=== PATIENT | male | born 1980 | race African-American/Black ===

== ENCOUNTER 2024-10-29 05:06 | Inpatient (IN) | payer OTHER, SELFPAY ==
[2024-10-29] VITALS (28 sets, daily range): BP systolic 147–191; BP diastolic 98–146; PULSE 76–108; RESP 15–23; TEMP 36.5–37.2; O2SAT 95–100; BMI 27.0
--- NOTE | ~2024-10-29 | CT_ITS ---
EXAMINATION: CT brain wo con DATE: 10/29/2024 05:23 INDICATION: Right arm paralysis. TECHNIQUE: Computed tomography (CT) of the head was performed without intravenous contrast. The mA wa s adjusted according to patient size. Iterative reconstruction technique was employed. The dose-lengt h product was 908.00 mGy-cm. COMPARISON: None FINDINGS: There is an old lacunar infarct in the right thalamus. There is no intracranial hemorrhage, acute infarction, or abnormal intracranial mass lesion. The ventricles are normal in size. There is mild mucosal thickening in the paranasal sinuses. The orbits are normal. The mastoid air cells are no rmal. IMPRESSION: 1. Old lacunar infarct in the right thalamus. I called this result to Dr. Reyna. Reviewed, dictated and finalized at location A. IMPRESSION: 1. Old lacunar infarct in the right thalamus. I called this result to Dr. Iris greer
--- NOTE | ~2024-10-29 | CT_ITS ---
EXAMINATION: CTA brain carotid DATE: 10/29/2024 05:30 INDICATION: Right arm paralysis. TECHNIQUE: Computed tomographic angiography (CTA) of the head was performed with 100 mL Omnipaque-350 intravenous contrast. CTA of the neck was performed with intravenous contrast. Automated exposure co ntrol and iterative reconstruction technique were employed. The dose-length product was 1098.86 mGy-c m. Maximum intensity projection and volume rendered 3D-reconstructions were created by the [employer] st on a separate workstation. COMPARISON: Head CT 10/29/2024 FINDINGS: HEAD CTA: There is an old lacunar infarct in the right thalamus. There is no intracranial hemorrhage, acute infarction, or abnormal intracranial mass lesion. The ventricles are normal in size. The orbit s are normal. There is mild mucosal thickening in the paranasal sinuses. The mastoid air cells are no rmal. The vertebral arteries are codominant. There is mild stenosis of basilar artery and the posteri or cerebral arteries. There is no significant stenosis of the intracranial internal carotid arteries or anterior or middle cerebral arteries. Anterior communicating artery is normal. Posterior communica ting arteries are not identified. There is no aneurysm. NECK CTA: There is mild emphysema. There is mild scarring at left lung apex. There is no significant stenosis of the vertebral arteries. There is minimal plaque in the proximal internal carotid arteries . There is 0% stenosis of the proximal right internal carotid artery relative to normal distal artery lumen diameter (NASCET criteria). There is 0% stenosis of the proximal left internal carotid artery relative to normal distal artery lumen diameter. There is a carious lesion in a right maxillary molar . There is mild cervical spondylosis. IMPRESSION: 1. Old lacunar infarct in the right thalamus. 2. No aneurysm or significant intracranial arterial stenosis. 3. 0% stenosis of the proximal internal carotid arteries relative to normal distal artery lumen diame ters (NASCET criteria). 4. Mild emphysema. Reviewed, dictated and finalized at location A. IMPRESSION: 1. Old lacunar infarct in the right thalamus. 2. No aneurysm or significant intracranial arterial stenosis. 3. 0% stenosis of the proximal internal carotid arteries relative to normal dis sathish artery lumen diameters (NASCET criteria). 4. Mild emphysema.
--- NOTE | ~2024-10-29 | XR_ITS ---
EXAMINATION: XR chest 1V portable DATE: 10/29/2024 06:04 INDICATION: Cerebrovascular accident. TECHNIQUE: A single frontal view of the chest was obtained. COMPARISON: None. FINDINGS: There is no pneumonia, pleural effusion, or pneumothorax. Cardiomegaly is noted. IMPRESSION: 1. Cardiomegaly. Reviewed, dictated and finalized at location A. IMPRESSION: 1. Cardiomegaly.
--- NOTE | ~2024-10-29 | MR_ITS ---
EXAMINATION: MR brain/brain stem wo/w con DATE: 10/29/2024 14:33 INDICATION: Transient ischemic attack. Right arm paralysis. TECHNIQUE: Magnetic resonance imaging (MRI) of the brain and brainstem was performed without and with 20 mL ProHance intravenous contrast. COMPARISON: Head CT 10/29/2024 FINDINGS: There is a small acute infarct in the left frontal lobe. There is an acute infarct involvin g the left temporal parietal region. There is an old lacunar infarct in the right thalamus. There are scattered areas of nonspecific increased T2-weighted signal intensity in the cerebral white matter. There is no intracranial hemorrhage or abnormal mass lesion. The ventricles are normal in size. There is mild mucosal thickening in the paranasal sinuses. The orbits are normal. The mastoid air cells ar e normal. IMPRESSION: 1. Acute infarcts involving the left frontal lobe and left temporal parietal region. 2. Old lacunar infarct in the right thalamus. 3. Mild nonspecific cerebral white matter disease, which likely represents chronic small vessel ische taty disease. Reviewed, dictated and finalized at location A. IMPRESSION: 1. Acute infarcts involving the left frontal lobe and left temporal parietal re gion. 2. Old lacunar infarct in the right thalamus. 3. Mild nonspecific cerebral white matter disease, which likely represents space and missile defense operations yvon small vessel ischemic disease.
--- NOTE | 2024-10-29 05:11 | ECG_ITS ---
Test Date: 2024-10-29 05:32:23 Measurements Intervals [place] Rate: 102 P: 57 TX: 177 QRS: 53 QRSD: 92 T: 134 QT: 346 QTc: 452 Interpretive Statements SINUS TACHYCARDIA POSSIBLE LEFT ATRIAL ENLARGEMENT [-0.1mV P-WAVE IN V1/V2] LEFT VENTRICULAR HYPERTROPHY AND ST-T CHANGE [VOLTAGE CRITERIA PLUS ST/T ABNORMALITY] No previous ECG available for comparison Electronically Signed On 10-30-2024 15:26:44 CDT by Katherine Hendricks M.D.
[2024-10-29 05:12] LABS: Glucose Point of Care 96 mg/dl (65-105)
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
[2024-10-29 05:21] LABS: Estimated Glomerular Filt Rate 60
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
--- NOTE | 2024-10-29 05:39 | PC.NURSE ---
pt states that he drank 3 monster energy drinks in less than 12 hours.
[2024-10-29 05:42] LABS: Basophils Absolute Auto 0.1 K/mm3 (0.0-0.1); Basophils Percent Auto 1.4 % (0.2-1.2); Eosinophils Absolute Auto 0.1 K/mm3 (0-0.3); Eosinophils Percent Auto 2.6 % (0-4.4); Hematocrit 45.2 % (42.0-52.0); Hemoglobin 14.7 g/dL (14.0-18.0); Immature Granulocyte Absolute 0.01 K/mm3 (0.00-0.031); Immature Granulocyte Percent A 0.2 % (0-0.5); Lymphocytes Absolute Auto 1.78 K/mm3 (0.9-3.2); Lymphocytes Percent Auto 35.9 % (18.3-44.2); Mean Corpuscular HGB Conc 32.5 g/dl (32-36); Mean Corpuscular Hemoglobin 33.3 pg (26-34); Mean Corpuscular Volume 102.5 fl (80-100); Mean Platelet Volume 9.9 fl (7.4-10.4); Monocytes Absolute Auto 0.6 K/mm3 (0.1-0.6); Monocytes Percent Auto 12.3 % (2.6-8.5); Neutrophils Absolute Auto 2.4 K/mm3 (1.3-6.7); Neutrophils Percent Auto 47.6 % (45.5-73.1); Platelet Count Result 348 k/mm3 (150-375); Red Blood Count 4.41 M/mm3 (4.6-6.20); Red Cell Distribution Width 13.9 % (11.5-14.5)
[2024-10-29 05:56] LABS: Prothrombin Time 13.1 Seconds (11.1-14.7)
[2024-10-29 05:57] LABS: Partial Thromboplastin Time 27.3 Seconds (22.3-36.8)
[2024-10-29 06:04] LABS: Troponin I 0.022 ng/mL (0.000-0.034)
[2024-10-29 06:39] LABS: Alanine Aminotransferase 28 U/L (6-50); Albumin Level 4.8 g/dL (3.5-5.1); Alkaline Phosphatase 118 U/L (38-126); Anion Gap 11 mmol/L (4-12); Aspartate Amino Transferase 48 U/L (17-59); Bilirubin,Total 0.4 mg/dL (0.2-1.3); Blood Urea Nitrogen 11 mg/dL (9-20); Calcium 9.3 mg/dL (8.4-10.2); Carbon Dioxide 24 mmol/L (22-30); Chloride 103 mmol/L (98-107); Estimated CRCL calculation 81 ml/min; Estimated Glomerular Filt Rate > 60; Glucose 99 mg/dL (65-110); Potassium 3.9 mmol/L (3.4-5.0); Sodium 138 mmol/L (137-145)
[2024-10-29 06:51] LABS: NT Pro B Type Natriuretic Pept 852 pg/mL (19.9-100)
[2024-10-29] MEDS: LABETALOL HCL INJ 100 MG/20 ML VIAL 10 MG IV PUSH ×2 (06:59→09:03)
[2024-10-29 07:12] LABS: Cholesterol 207 mg/dL (0-200); HDL Direct 105 mg/dL; Triglycerides 60 mg/dL (<150)
[2024-10-29 07:13] LABS: Erythrocyte Sedimentation Rate 8 mm/hr (0-20)
[2024-10-29 07:22] LABS: LDL Cholesterol Direct 79 mg/dL
[2024-10-29 07:27] LABS: Hemoglobin A1C 5.4 % (<5.7)
[2024-10-29 07:36] LABS: Syphilis IgG/IgM Antibody Negative (Negative)
[2024-10-29] MEDS: CLOPIDOGREL BISULFATE 300 MG TABLET PO (09:00)
[2024-10-29] MEDS: ATORVASTATIN 40 MG TABLET PO (09:00)
[2024-10-29] MEDS: ASPIRIN 81 MG ENTERIC TABLET PO (09:00)
--- NOTE | 2024-10-29 09:36 | PC.NURSE ---
While this RN was in the room with patient around 0912, pt started having forceful, uncontrolled blinking, as well as forehead twitching. Pt reports he has never had this before, lasted approximately 30 seconds, and pt was talking to me through this. No change in VS while this was occuring. Pt's only current neuro deficit upon this RN's exam was mild expressive aphasia, slight delay finding his words but pt A&Ox4 and able to converse well despite slight delay. Approx 10 minutes after the uncontrolled blinking/forehead twitching, pt started having twitching to right side of his mouth that lasted for about two minutes. Pt was, again, responsive and talking through this. [place] Martin was informed of these incidents in report. This RN attempted to call MD Taveras, left message to call back.
--- NOTE | 2024-10-29 10:19 | ADMGEN ---
This patient, Rimma Elliott, was admitted to IMU Room 212-01. Patient/family oriented to hospital policies and general routines including ID bracelet, bed and alarms, visiting hours, pain management, procedures, bathroom and other care routines, personal items, smoking policy, room service/diet, and visiting hours. Information on how to activate the Rapid Response Team has been discussed. Patient/Family are encouraged to report perceived risks to care and to ask questions if they do not understand what they are told or what they should do.
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
--- NOTE | 2024-10-29 15:12 | PM.IMHP ---
H&P: HPI History of Present Illness Date/Time: 10/29/24 15:12 Chief Complaint: Right-sided weakness Narrative: This is a 44-year-old male who presented to the ER with right arm and leg weakness that started suddenly a approximately 4:10 a.m. prior to which he was at his baseline state of health and was at work. He denies any history of trauma. No other prior known diagnosis. Upon arrival to the ER his symptoms were already improving and continue to improve. Recheck which it was reported to be 96. Vital signs notable for tachycardia as well as hypertension. CT head with no bleed. CTA head and neck with old right thalamic stroke. No other significant stenosis noted. Patient's neurological symptoms continue to improve throughout his ER stay. Stroke team at [facility] was also contacted and given rapid improvement of his neurological symptoms no tPA or any any intervention recommended. He is getting admitted for further stroke workup and evaluation. Currently he reports right-sided weakness has much more improved and he has some numbness in his right upper extremity. He also had some twitching in his right face earlier in the ER which was short-lived. He received a dose of aspirin as well as loading dose of Plavix in the ER. For his hypertension he was given a dose of IV labetalol. He is getting admitted for further treatment. Review of Systems Review of Systems: - CONSTITUTIONAL: Denies weight loss, fever and chills. - HEENT: Denies changes in vision and hearing - RESPIRATORY: Denies SOB and cough. - CV: Denies palpitations and CP. - GI: Denies abdominal pain, nausea, vomiting and diarrhea. - : Denies dysuria and urinary frequency. - MSK: Denies myalgia and joint pain. - SKIN: Denies rash and pruritus. - NEUROLOGICAL: Denies headache and syncope. See HPI - PSYCHIATRIC: Denies recent changes in mood. Denies anxiety and depression. [facility] Past Medical History Medical History (Updated 10/29/24 @ 11:17 by Diya Isaacs MD) Left-sided cerebrovascular accident (CVA) Family History Family History Sibling TIA (transient ischemic attack) Mother Diabetes mellitus Hypertension Social History Social History Years smoked: 20 Smoking status: Current every day smoker Tobacco type: cigarettes Alcohol intake: current Drinks per week: 5 Substance use: never Do You Feel Safe in your Home?: Yes Lack of Transportation: No Lack of Food: Never True Current Housing: I Have Housing Concerned About Future Housing: No Difficulty Paying Gas/Electric Bills: No Difficulty Paying for Meds: No Currently Unemployed: No Education: Associate Degree Difficulty w/ Childcare or Family Care: No Occupation/Education: occupation Spiritual care concerns: No Meds Home Medications and Allergies Home Medications ?Medication ?Instructions ?Recorded ?Confirmed ?Type No Home Medications 10/29/24 10/29/24 History Allergies Allergy/AdvReac Type Severity Reaction Status Date / Time No Known Allergies Allergy Verified 10/29/24 05:35 Vital Signs Vital Signs - 24 hr 10/29/24 05:29 10/29/24 05:29 10/29/24 05:29 Temperature Pulse Rate 105 H 105 H 105 H Respiratory Rate 20 20 Blood Pressure Pulse Oximetry 97 Oxygen Delivery 10/29/24 05:29 10/29/24 05:29 10/29/24 05:38 Temperature 98.9 F Pulse Rate 108 H Respiratory Rate 20 Blood Pressure 161/146 H Pulse Oximetry 100 100 Oxygen Delivery Room Air Room Air 10/29/24 05:38 10/29/24 05:40 10/29/24 05:40 Temperature Pulse Rate 103 H 104 H 103 H Respiratory Rate 16 18 18 Blood Pressure 161/146 H 184/133 H 184/133 H Pulse Oximetry 98 98 98 Oxygen Delivery 10/29/24 05:47 10/29/24 06:10 10/29/24 06:16 Temperature Pulse Rate 107 H 101 H 99 Respiratory Rate 20 23 H 21 H Blood Pressure 164/123 H 183/135 H 191/133 H Pulse Oximetry 98 96 99 Oxygen Delivery 10/29/24 07:01 10/29/24 07:16 10/29/24 07:46 Temperature Pulse Rate 92 86 89 Respiratory Rate 18 19 23 H Blood Pressure 182/135 H 178/130 H 178/125 H Pulse Oximetry 98 99 99 Oxygen Delivery 10/29/24 08:16 10/29/24 08:30 10/29/24 08:31 Temperature Pulse Rate 82 78 83 Respiratory Rate 20 17 19 Blood Pressure 177/126 H 177/127 H Pulse Oximetry 99 99 99 Oxygen Delivery 10/29/24 08:45 10/29/24 08:46 10/29/24 09:00 Temperature Pulse Rate 87 82 90 Respiratory Rate 19 20 19 Blood Pressure 170/115 H Pulse Oximetry 100 100 100 Oxygen Delivery 10/29/24 09:01 10/29/24 09:03 10/29/24 09:15 Temperature Pulse Rate 83 88 88 Respiratory Rate 20 15 Blood Pressure 172/127 H Pulse Oximetry 99 99 Oxygen Delivery 10/29/24 10:04 10/29/24 10:04 10/29/24 10:04 Temperature 98.4 F Pulse Rate 81 89 Respiratory Rate 18 Blood Pressure 162/120 H Pulse Oximetry 99 Oxygen Delivery Room Air 10/29/24 12:00 10/29/24 12:00 10/29/24 12:00 Temperature 98.3 F Pulse Rate 82 94 Respiratory Rate 16 Blood Pressure 162/104 H Pulse Oximetry 99 Oxygen Delivery Room Air 10/29/24 14:00 Temperature Pulse Rate 84 Respiratory Rate Blood Pressure Pulse Oximetry Oxygen Delivery Exam Narrative: GENERAL: Well-appearing, well-nourished, and in no acute distress. HEAD: Normocephalic, atraumatic. EYES: Non injected, non icteric. ENT: Nares clear, no rhinorrhea or epistaxis. NECK: Supple. CHEST: Speaking in full sentences. No respiratory distress. HEART: Regular rate and rhythm. ABDOMEN: Soft, nondistended. EXTREMITIES: Normal range of motion. No lower extremity edema. SKIN: Warm, dry, no rash. NEURO: Alert and oriented x3. Right-sided weakness sensory loss on right upper extremity expressive aphasia PSYCH: Normal mood and affect. H&P: Results Labs Labs: Short CBC 10/29/24 Range/Units 05:12 WBC 5.0 (4.5-10.0) K/mm3 Hgb 14.7 (14.0-18.0) g/dL Hct 45.2 (42.0-52.0) % Plt Count 348 (150-375) k/mm3 [facility] 10/29/24 10/29/24 10/29/24 05:12 05:19 06:19 Sodium Cancelled 138 Potassium Cancelled 3.9 Chloride Cancelled 103 Carbon Dioxide Cancelled 24 BUN Cancelled 11 Creatinine Cancelled 1.30 1.18 Glucose Cancelled 99 Calcium Cancelled 9.3 Cardiac Enzymes 03/24/25 Range/Units 05:12 Troponin I 0.022 (0.000-0.034) ng/mL Liver Function 10/29/24 10/29/24 Range/Units 05:12 06:19 Total Bilirubin Cancelled 0.4 AST Cancelled 48 ALT Cancelled 28 Alkaline Phosphatase Cancelled 118 Albumin Cancelled 4.8 Assessment and Plan Assessment and plan (1) Hypertension: Code(s): I10 - Essential (primary) hypertension Status: Acute (2) Left-sided cerebrovascular accident (CVA): Code(s): I63.9 - Cerebral infarction, unspecified Status: Acute (3) Expressive aphasia: Code(s): R47.01 - Aphasia Status: Acute Plan This is a 44-year-old male who presented to the ER with right arm and leg weakness that started suddenly a approximately 4:10 a.m. prior to which he was at his baseline state of health and was at work. He denies any history of trauma. No other prior known diagnosis. Upon arrival to the ER his symptoms were already improving and continue to improve. Recheck which it was reported to be 96. Vital signs notable for tachycardia as well as hypertension. CT head with no bleed. CTA head and neck with old right thalamic stroke. No other significant stenosis noted. Patient's neurological symptoms continue to improve throughout his ER stay. Stroke team at [facility] was also contacted and given rapid improvement of his neurological symptoms no tPA or any any intervention recommended. He is getting admitted for further stroke workup and evaluation. Currently he reports right-sided weakness has much more improved and he has some numbness in his right upper extremity. He also had some twitching in his right face earlier in the ER which was short-lived. He received a dose of aspirin as well as loading dose of Plavix in the ER. For his hypertension he was given a dose of IV labetalol. He is getting admitted for further treatment. Right-sided hemiparesis with expressive aphasia rapid improvement not a candidate for tPA or intervention. CT head was negative. CTA head and neck with no significant stenosis. MRI and echo will be planned. Aspirin and Plavix along with statin. A1c at 5.4. LDL 79. Workup for hypercoagulable state in progress. Hypertension allow permissive hypertension labetalol p.r.n. after 24-48 hour antihypertensive will need to be started PT OT ST will be consulted. DVT prophylaxis Lovenox code status full code Hospitalist MIPS Advance Care Plan I have confirmed that the patient's Advanced Care Plan is present, code status is documented, or surrogate decision maker is listed in patient medical record.: Yes Medication Reconciliation I have utilized all available resources to obtain, update and review the patients current medications (includes all prescriptions, OTC, herbals, cannabis, and nutritional supplements).: Yes
[2024-10-30] VITALS (13 sets, daily range): BP systolic 156–183; BP diastolic 97–114; PULSE 76–109; RESP 20; TEMP 36.8–37.1; O2SAT 98–99
--- NOTE | 2024-10-30 | ECHO_ITS ---
Patient Info Name: Rimma Elliott Age: 44 years : 1980 Gender: Male Ht: 69 in Wt: 214 lbs BSA: 2.20 m2 Heart Rhythm: Sinus Rhythm Technical Quality: Good Exam Date: 10/30/2024 12:50 PM Exam Location: Echo Lab Patient Status: Inpatient Admit Date: 10/29/2024 Staff Ordering Physician: Myriam Reyna MD Mechanical Shovel Operator: Radha Mayo RDCS Attending Provider: Benny Taveras MD Referring Physician: Axel SR; Exam Type: CA echo doppler w bubble study Study Info Indications - TIA Complete two-dimensional, color flow and Doppler transthoracic echocardiogram is performed with agitated saline. Contrast/Agitated Saline Contrast/Ag. Saline: Agitated Saline Amount: 12.00 ml Existing IV Access: Yes IV Access Condition: patent with no signs of infiltration Summary 1. Left ventricular chamber dimension is mildly enlarged. 2. Left ventricular systolic function is severely reduced, estimated at 25-30%. 3. The left ventricular diastolic function is grade I diastolic dysfunction. 4. Right ventricular chamber dimension is mildly enlarged. 5. Right ventricular systolic function is normal. 6. Left atrial chamber dimension is mildly enlarged. 7. Intact interatrial septum visualized by color flow and agitated saline imaging. Negative bubble study. 8. There is mild mitral valve regurgitation. 9. There is mild tricuspid valve regurgitation. Left Ventricle Left ventricular chamber dimension is mildly enlarged. Left ventricular systolic function is severely reduced, estimated at 25-30%. There is no increased left ventricular wall thickness. The left ventricular diastolic function is grade I diastolic dysfunction. Right Ventricle Right ventricular chamber dimension is mildly enlarged. Right ventricular systolic function is normal. Left Atria Left atrial chamber dimension is mildly enlarged. Right Atria Right atrial chamber dimension is normal. Atrial Septum Intact interatrial septum visualized by color flow and agitated saline imaging. Negative bubble study. Aortic Valve The aortic valve is trileaflet. There is no aortic valve stenosis. There is no aortic valve regurgitation. Pulmonic Valve The pulmonic valve is not well visualized. There is trace pulmonic regurgitation. Mitral Valve There is mild mitral valve regurgitation. Tricuspid Valve There is mild tricuspid valve regurgitation. Pericardium/Pleural There is no pericardial effusion. Inferior Vena Cava Normal inferior vena cava with >50% collapse upon inspiration consistent with normal right atrial pressure, 3 mmHg. Aorta The aortic root size at the sinus of Valsalva is normal. Left Ventricular Outflow Tract Name Value Normal LVOT 2D LVOT Diameter 2.1 cm LVOT Doppler LVOT Peak Gradient 3 mmHg LVOT Mean Gradient 2 mmHg LVOT VTI 16 cm LVOT VTI/AV VTI Ratio 0.8 LVOT Stroke Volume 52 ml LVOT CO 14.0 l/min LVOT CI 6.4 l/min/m2 Pulmonic Valve Name Value Normal PV Doppler PV Peak Gradient 3 mmHg Mitral Valve Name Value Normal MV Doppler MV Decel [place] 545 cm/s2 MV PHT 41 ms MV Area (PHT) 5.4 cm2 4.0-5.0 MV Diastolic Function MV E Peak Velocity 76 cm/s MV A Peak Velocity 57 cm/s MV E/A 1.3 MV Decel Time 140 ms MV Annular TDI MV E/e' (Septal) 12.7 <=8.0 MV E/e' (Lateral) 10.9 <=8.0 MV E/e' (Average) 11.8 Tricuspid Valve Name Value Normal TV Regurgitation Doppler TR Peak Velocity 249 cm/s TR Peak Gradient 15 mmHg Estimated PAP/RSVP RA Pressure 3 mmHg <=5 PA Systolic Pressure 28 mmHg <36 RV Systolic Pressure 28 mmHg <36 Aorta Name Value Normal Ascending Aorta Ao Root Diameter (MM) 3.3 cm Ao Root Diam Index (MM) 1.5 cm/m2 Aortic Valve Name Value Normal AV Doppler AV Peak Velocity 118 cm/s AV Peak Gradient 6 mmHg AV Mean Gradient 4 mmHg AV VTI 20 cm AV Area (Cont Eq VTI) 2.7 cm2 >=3.0 AV Area (Cont Eq Chris) 2.6 cm2 AV Regurgitation 2D LVOT Area 3.3 cm2 Ventricles Name Value Normal LV Dimensions 2D/MM IVS Diastolic Thickness (2D) 1.0 cm 0.6-1.0 LVID Diastole (2D) 6.0 cm 4.2-5.8 LVIW Diastolic Thickness (2D) 1.0 cm 0.6-1.0 LVID Systole (2D) 5.1 cm 2.5-4.0 LVOT Diameter 2.1 cm LV Mass (2D Cubed) 241.30 g 88.00-224.00 LV Mass Index (2D Cubed) 110 g/m2 49-115 Relative Wall Thickness (2D) 0.32 LV Fractional Shortening/Ejection Fraction 2D/MM LV Fractional Shortening (2D) 14 % 25-43 LV EF (2D Teicholz) 29 % 52-72 LV Diastolic Volume (4C MOD) 139 ml LV EF (4C MOD) 28 % LV Diastolic Volume (2C MOD) 185 ml LV EF (2C MOD) 34 % LV Diastolic Volume (BP MOD) 168 ml 62-150 LV Diastolic Volume Index (BP MOD) 76 ml/m2 34-74 LV Systolic Volume (BP MOD) 111 ml 21-61 LV Systolic Volume Index (BP MOD) 51 ml/m2 11-31 LV EF (BP MOD) 34 % 52-72 LV Diastolic Length (4C) 8.6 cm LV Systolic Length (4C) 8.2 cm LV Stroke Volume (4C MOD) 39 ml RV Dimensions 2D/MM RVID Diastole (2D) 4.3 cm 2.5-3.5 Atria Name Value Normal LA Dimensions LA Dimension (MM) 4.5 cm 3.0-4.1 LA Volume (4C A-L) 89 ml LA Volume (BP A-L) 88 ml RA Dimensions RA Area (4C) 15.1 cm2 <=18.0 Report Signatures
[2024-10-30 08:05] LABS: Hemoglobin 14.5 g/dL (14.0-18.0); Mean Corpuscular Hemoglobin 33.4 pg (26-34); Mean Corpuscular Volume 101.4 fl (80-100); Mean Platelet Volume 9.2 fl (7.4-10.4); Platelet Count Result 316 k/mm3 (150-375); Red Blood Count 4.34 M/mm3 (4.6-6.20); Red Cell Distribution Width 14.1 % (11.5-14.5); White Blood Count 5.5 K/mm3 (4.5-10.0)
[2024-10-30 08:24] LABS: Alanine Aminotransferase 24 U/L (6-50); Albumin Level 4.4 g/dL (3.5-5.1); Alkaline Phosphatase 92 U/L (38-126); Anion Gap 9 mmol/L (4-12); Aspartate Amino Transferase 36 U/L (17-59); Bilirubin,Total 0.5 mg/dL (0.2-1.3); Blood Urea Nitrogen 12 mg/dL (9-20); Calcium 9.3 mg/dL (8.4-10.2); Carbon Dioxide 23 mmol/L (22-30); Chloride 108 mmol/L (98-107); Estimated CRCL calculation 77 ml/min; Estimated Glomerular Filt Rate > 60; Glucose 147 mg/dL (65-110); Potassium 4.3 mmol/L (3.4-5.0); Sodium 140 mmol/L (137-145)
[2024-10-30] MEDS: CLOPIDOGREL BISULFATE 75 MG TABLET PO (08:30)
[2024-10-30] MEDS: ASPIRIN 81 MG ENTERIC TABLET PO (08:30)
[2024-10-30] MEDS: ATORVASTATIN 40 MG TABLET PO (08:30)
--- NOTE | 2024-10-30 11:17 | PM.IMPN ---
Progress Note: A&P Assessment and Plan (1) Hypertension: Code(s): I10 - Essential (primary) hypertension Status: Acute (2) Left-sided cerebrovascular accident (CVA): Code(s): I63.9 - Cerebral infarction, unspecified Status: Acute (3) Expressive aphasia: Code(s): R47.01 - Aphasia Status: Acute Plan This is a 44-year-old male who presented to the ER with right arm and leg weakness that started suddenly a approximately 4:10 a.m. prior to which he was at his baseline state of health and was at work. He denies any history of trauma. No other prior known diagnosis. Upon arrival to the ER his symptoms were already improving and continue to improve. Recheck which it was reported to be 96. Vital signs notable for tachycardia as well as hypertension. CT head with no bleed. CTA head and neck with old right thalamic stroke. No other significant stenosis noted. Patient's neurological symptoms continue to improve throughout his ER stay. Stroke team at [facility] was also contacted and given rapid improvement of his neurological symptoms no tPA or any any intervention recommended. He is getting admitted for further stroke workup and evaluation. Currently he reports right-sided weakness has much more improved and he has some numbness in his right upper extremity. He also had some twitching in his right face earlier in the ER which was short-lived. He received a dose of aspirin as well as loading dose of Plavix in the ER. For his hypertension he was given a dose of IV labetalol. He is getting admitted for further treatment. Right-sided hemiparesis with expressive aphasia rapid improvement not a candidate for tPA or intervention. CT head was negative. CTA head and neck with no significant stenosis. MRI brain revealed acute infarct involving the left frontal lobe and left temporal parietal region. Noted old lacunar infarct in the right thalamus. Echo is pending. Aspirin and Plavix along with statin. A1c at 5.4. LDL 79. Workup for hypercoagulable state in progress. Hypertension allow permissive hypertension labetalol p.r.n. after 24-48 hour antihypertensive will need to be started. Will start antihypertensive to slowly lower his blood pressure PT OT ST will be consulted. DVT prophylaxis Lovenox code status full code Subjective Date/time seen: 10/30/24 11:17 Interval history: Right arm numbness still persists. No other complaints. Denies any chest pain or shortness of breath. Review of Systems Review of Systems: All systems reviewed & are unremarkable except as noted in HPI and below Exam Narrative: GENERAL: Well-appearing, well-nourished, and in no acute distress. HEAD: Normocephalic, atraumatic. EYES: Non injected, non icteric. ENT: Nares clear, no rhinorrhea or epistaxis. NECK: Supple. CHEST: Speaking in full sentences. No respiratory distress. HEART: Regular rate and rhythm. ABDOMEN: Soft, nondistended. EXTREMITIES: Normal range of motion. No lower extremity edema. SKIN: Warm, dry, no rash. NEURO: Alert and oriented x3. Right-sided weakness sensory loss on right upper extremity expressive aphasia PSYCH: Normal mood and affect. Objective Data Vital Signs Vital Signs: Vital Signs - 24 hr 10/29/24 12:00 10/29/24 12:00 10/29/24 12:00 Temperature 98.3 F Pulse Rate 82 94 Respiratory Rate 16 Blood Pressure 162/104 H Pulse Oximetry 99 Oxygen Delivery Room Air 10/29/24 14:00 10/29/24 15:19 10/29/24 16:00 Temperature Pulse Rate 84 Respiratory Rate Blood Pressure Pulse Oximetry 98 Oxygen Delivery Room Air Room Air 10/29/24 16:00 10/29/24 16:00 10/29/24 18:00 Temperature 97.7 F Pulse Rate 94 83 86 Respiratory Rate 18 Blood Pressure 158/100 H Pulse Oximetry 98 Oxygen Delivery 10/29/24 20:00 10/29/24 20:00 10/29/24 20:36 Temperature 97.8 F Pulse Rate 85 88 Respiratory Rate 20 Blood Pressure 165/98 H Pulse Oximetry 95 Oxygen Delivery Room Air 10/29/24 22:00 10/29/24 23:43 10/29/24 23:45 Temperature 98.9 F Pulse Rate 79 76 Respiratory Rate 20 Blood Pressure 147/105 H Pulse Oximetry 95 Oxygen Delivery Room Air 10/30/24 00:00 10/30/24 02:00 10/30/24 03:49 Temperature 98.6 F Pulse Rate 80 81 102 H Respiratory Rate 20 Blood Pressure 169/97 H Pulse Oximetry 99 Oxygen Delivery 10/30/24 04:00 10/30/24 04:00 10/30/24 06:00 Temperature Pulse Rate 81 76 Respiratory Rate Blood Pressure Pulse Oximetry Oxygen Delivery Room Air 10/30/24 07:28 10/30/24 08:00 Temperature 98.5 F Pulse Rate 97 93 Respiratory Rate 20 Blood Pressure 161/101 H Pulse Oximetry 98 Oxygen Delivery Intake/Output Intake/Output: Intake & Output 10/27/24 10/28/24 10/29/24 10/30/24 23:59 23:59 23:59 23:59 Intake Total 1080 910 Balance 1080 910 Meds/Results Medications: Active Medications Generic Name Dose Route Start Last Admin Trade Name Freq PRN Reason Stop Dose Admin Acetaminophen 650 mg 10/29/24 07:59 Acetaminophen 325 Mg Tablet PO Q4H PRN Mild Pain (1-3) or Fever Aspirin 81 mg 10/30/24 09:00 10/30/24 08:30 Aspirin 81 Mg Enteric Tablet PO 81 mg QAM ANTHONY Administration Atorvastatin Calcium 40 mg 10/29/24 09:00 10/30/24 08:30 Atorvastatin 40 Mg Tablet PO 40 mg DAILY ANTHONY Administration Clopidogrel Bisulfate 75 mg 10/30/24 09:00 10/30/24 08:30 Clopidogrel Bisulfate 75 Mg Tablet PO 75 mg QAM ANTHONY Administration Ondansetron HCl 4 mg 10/29/24 07:59 Ondansetron Inj 4 Mg/2 Ml Vial IV PUSH Q4H PRN Nausea Perflutren Lipid Microsphere 0 ml 10/29/24 07:49 Perflutren Lipid Microspheres 1.5 Ml Vial Diluted To 10 Ml Total Volume IV PUSH 11/01/24 07:49 ONCE PRN adequate visualization Protocol Radiology Results: ITS Impressions Head CT 10/29/24 05:23 IMPRESSION: 1. Old lacunar infarct in the right thalamus. I called this result to Dr. Reyna. Head/Neck CTA 10/29/24 05:31 IMPRESSION: 1. Old lacunar infarct in the right thalamus. 2. No aneurysm or significant intracranial arterial stenosis. 3. 0% stenosis of the proximal internal carotid arteries relative to normal distal artery lumen diameters (NASCET criteria). 4. Mild emphysema. Chest X-Ray 10/29/24 06:08 IMPRESSION: 1. Cardiomegaly. Brain MRI 10/29/24 15:08 IMPRESSION: 1. Acute infarcts involving the left frontal lobe and left temporal parietal region. 2. Old lacunar infarct in the right thalamus. 3. Mild nonspecific cerebral white matter disease, which likely represents chronic small vessel ischemic disease. Labs Labs: Laboratory Results - last 24 hr 10/29/24 10/30/24 07:19 08:00 WBC 5.5 RBC 4.34 L Hgb 14.5 Hct 44.0 MCV 101.4 H MCH 33.4 MCHC 33.0 RDW 14.1 Plt Count 316 MPV 9.2 Sodium 140 Potassium 4.3 Chloride 108 H Carbon Dioxide 23 Anion Gap 9 BUN 12 Creatinine 1.19 Estim Creat Clear Calc 77 Estimated GFR > 60 Glucose 147 H Calcium 9.3 Total Bilirubin 0.5 AST 36 ALT 24 Alkaline Phosphatase 92 Total Protein 8.0 Albumin 4.4 Anti-DNA Antibody <1
--- NOTE | 2024-10-30 16:29 | PM.CNCAR ---
Assessment and Plan Assessment and plan (1) Left-sided cerebrovascular accident (CVA): Code(s): I63.9 - Cerebral infarction, unspecified Status: Acute Assessment and Plan: Neurology following. Started on dual antiplatelets and Atorvastatin. Unclear etiology. Given history of alcohol, would have him wear event monitor upon discharge to check for PAF. (2) Systolic dysfunction: Code(s): I51.9 - Heart disease, unspecified Status: Acute Assessment and Plan: Probably chronic as he is not in acute heart failure. 10/30/24 Echo: EF 25-30%, mild LVE, grade I diastolic dysfunction, mild RVE, mild LAE, mild MR/TR. Discuss life vest to prevent sudden cardiac arrest but he is not interested. Start Coreg 3.125 mg BID, Entresto 24-26 mg BID. Monitor BP as we do not want to drop it too abruptly given acute stroke. Will hold off on stress testing or LHC given acute stroke. (3) Smoking: Code(s): F17.200 - Nicotine dependence, unspecified, uncomplicated Status: Acute Assessment and Plan: Counseled regarding smoking cessation. Counseled to abstain from alcohol intake. History of Present Illness History of Present Illness Consult date/time: 10/30/24 16:29 Reason For Visit: TIA Narrative: 44 yr old man presents to ER with right sided weakness. He has a history of smoking, prior alcohol abuse. at bedside. He reports sudden onset right UE weakness/numbness and difficulty with finding the right words. Reports having orthopnea at home in recent weeks. He states he can walk 1/2 mile. Denies chest pain, sob, edema, dizziness, palpitations. Review of Systems Review of Systems: All systems reviewed & are unremarkable except as noted in HPI and below Constitutional: Constitutional: Reports as per HPI, Denies chills and Denies fever(s) Cardiovascular: Cardiovascular: Reports as per HPI, Denies chest pain and Denies irregular heart rhythm Respiratory: Respiratory: Reports as per HPI and Denies dyspnea Gastrointestinal: Gastrointestinal: Reports as per HPI and Denies abdominal pain Genitourinary: Genitourinary: Reports as per HPI and Denies dysuria Neurologic: Reports as per HPI, Denies dizziness and Denies syncope [facility] Past Medical History Medical History (Updated 10/30/24 @ 16:32 by Marco Ludwig DO) Left-sided cerebrovascular accident (CVA) Family History Family History Sibling TIA (transient ischemic attack) Mother Diabetes mellitus Hypertension Social History Social History Years smoked: 20 Smoking status: Current every day smoker Tobacco type: cigarettes Alcohol intake: current Drinks per week: 5 Substance use: never Do You Feel Safe in your Home?: Yes Lack of Transportation: No Lack of Food: Never True Current Housing: I Have Housing Concerned About Future Housing: No Difficulty Paying Gas/Electric Bills: No Difficulty Paying for Meds: No Currently Unemployed: No Education: Associate Degree Difficulty w/ Childcare or Family Care: No Occupation/Education: occupation Spiritual care concerns: No Meds Home Medications and Allergies Home Medications ?Medication ?Instructions ?Recorded ?Confirmed ?Type No Home Medications 10/29/24 10/29/24 History Allergies Allergy/AdvReac Type Severity Reaction Status Date / Time No Known Allergies Allergy Verified 10/29/24 05:35 Vital Signs Vital Signs - 24 hr 10/29/24 18:00 10/29/24 20:00 10/29/24 20:00 Temperature Pulse Rate 86 85 Respiratory Rate Blood Pressure Pulse Oximetry Oxygen Delivery Room Air 10/29/24 20:36 10/29/24 22:00 10/29/24 23:43 Temperature 97.8 F 98.9 F Pulse Rate 88 79 76 Respiratory Rate 20 20 Blood Pressure 165/98 H 147/105 H Pulse Oximetry 95 95 Oxygen Delivery 10/29/24 23:45 10/30/24 00:00 10/30/24 02:00 Temperature Pulse Rate 80 81 Respiratory Rate Blood Pressure Pulse Oximetry Oxygen Delivery Room Air 10/30/24 03:49 10/30/24 04:00 10/30/24 04:00 Temperature 98.6 F Pulse Rate 102 H 81 Respiratory Rate 20 Blood Pressure 169/97 H Pulse Oximetry 99 Oxygen Delivery Room Air 10/30/24 06:00 10/30/24 07:28 10/30/24 08:00 Temperature 98.5 F Pulse Rate 76 97 93 Respiratory Rate 20 Blood Pressure 161/101 H Pulse Oximetry 98 Oxygen Delivery 10/30/24 12:00 10/30/24 13:44 10/30/24 15:25 Temperature 98.3 F Pulse Rate 92 89 Respiratory Rate 20 Blood Pressure 156/106 H Pulse Oximetry 98 Oxygen Delivery Room Air Exam Const: General: cooperative, healthy appearing and comfortable Resp: Auscultation: clear to auscultation bilaterally, no crackles, no rales, no rhonchi and no wheezes Cardio: Rate: regular rate Rhythm: regular rhythm Heart sounds: no murmurs Peripheral pulses: dorsalis pedis present GI: GI Palp: No abdominal tenderness and Yes Soft to palpation Neuro: General: oriented to person, oriented to place and oriented to time Extrem: Right lower extremity: no edema Left lower extremity: no edema Results Labs and Meds 10/30/24 08:00 10/30/24 08:00 Lab results: Cardiac Enzymes 10/30/24 Range/Units 08:00 AST 36 (17-59) U/L CBC 10/30/24 Range/Units 08:00 WBC 5.5 (4.5-10.0) K/mm3 RBC 4.34 L (4.6-6.20) M/mm3 Hgb 14.5 (14.0-18.0) g/dL Hct 44.0 (42.0-52.0) % Plt Count 316 (150-375) k/mm3 Comprehensive Metabolic Panel 10/30/24 Range/Units 08:00 Sodium 140 (137-145) mmol/L Potassium 4.3 (3.4-5.0) mmol/L Chloride 108 H (98-107) mmol/L Carbon Dioxide 23 (22-30) mmol/L BUN 12 (9-20) mg/dL Creatinine 1.19 (0.7-1.3) mg/dL Glucose 147 H (65-110) mg/dL Calcium 9.3 (8.4-10.2) mg/dL AST 36 (17-59) U/L ALT 24 (6-50) U/L Alkaline Phosphatase 92 (38-126) U/L Total Protein 8.0 (6.3-8.2) g/dL Albumin 4.4 (3.5-5.1) g/dL Intake and Output 10/30/24 10/30/24 10/30/24 07:59 15:59 23:59 Intake Total 550 600 Balance 550 600 Intake: Oral 550 600 Other: # Unmeasured Voids 1 Patient Weight 10/30/24 23:59 Weight 93 kg
--- NOTE | 2024-10-30 18:45 | PC.NURSE ---
On 10/30/24, the student, [Radha Carroll ], provided care and completed [facility] documentation on this patient. I have reviewed the student's documentation and agree with the findings.
[2024-10-31] VITALS (9 sets, daily range): BP systolic 159–171; BP diastolic 40–116; PULSE 84–95; RESP 16–20; TEMP 35.7–36.8; O2SAT 96–99
--- NOTE | 2024-10-31 07:57 | P.PNCA_ITS ---
Progress Note: A&P Assessment and Plan (1) Left-sided cerebrovascular accident (CVA): Code(s): I63.9 - Cerebral infarction, unspecified Status: Acute Assessment and Plan: Neurology following. Started on dual antiplatelets and Atorvastatin. Unclear etiology. Given history of alcohol, would have him wear event monitor upon discharge to check for PAF. (2) Systolic dysfunction: Code(s): I51.9 - Heart disease, unspecified Status: Acute Assessment and Plan: Euvolemic. Probably chronic as he is not in acute heart failure. Could be due to prior alcohol use. 10/30/24 Echo: EF 25-30%, mild LVE, grade I diastolic dysfunction, mild RVE, mild LAE, mild MR/TR. Discuss life vest to prevent sudden cardiac arrest but he is not interested. Start Coreg 3.125 mg BID, Entresto 24-26 mg BID. Monitor BP as we do not want to drop it too abruptly given acute stroke. Monitor BP. Will hold off on stress testing or LHC given acute stroke. (3) Smoking: Code(s): F17.200 - Nicotine dependence, unspecified, uncomplicated Status: Acute Assessment and Plan: Counseled regarding smoking cessation. Counseled to abstain from alcohol intake. Subjective Date/time seen: 10/31/24 07:57 Interval history: Denies chest pain or sob. Has right UE weakness/numbness. Exam Const: General: cooperative, healthy appearing and comfortable Orientation/consciousness: oriented to person, oriented to place and oriented to time Resp: Auscultation: clear to auscultation bilaterally, no crackles, no rales, no rhonchi and no wheezes Cardio: Rate: regular rate Rhythm: regular rhythm Heart sounds: no murmurs Peripheral pulses: dorsalis pedis present Neuro: General: oriented to person, oriented to place and oriented to time Extrem: Right lower extremity: no edema Left lower extremity: no edema Objective Data Vital Signs Vital Signs: Vital Signs - 24 hr 10/30/24 08:00 10/30/24 12:00 10/30/24 13:44 Temperature Pulse Rate 93 92 Respiratory Rate Blood Pressure Pulse Oximetry Oxygen Delivery Room Air 10/30/24 15:25 10/30/24 16:00 10/30/24 20:00 Temperature 98.3 F Pulse Rate 89 86 Respiratory Rate 20 Blood Pressure 156/106 H Pulse Oximetry 98 Oxygen Delivery Room Air 10/30/24 20:00 10/30/24 20:48 10/30/24 23:57 Temperature 98.7 F Pulse Rate 91 91 109 H Respiratory Rate 20 Blood Pressure 183/114 H Pulse Oximetry 99 Oxygen Delivery 10/31/24 00:00 10/31/24 04:00 10/31/24 07:44 Temperature 98.3 F Pulse Rate 86 84 95 Respiratory Rate 20 Blood Pressure 161/116 H Pulse Oximetry 96 Oxygen Delivery Intake/Output Intake/Output: Intake & Output 10/28/24 10/29/24 10/30/24 10/31/24 23:59 23:59 23:59 23:59 Intake Total 1080 1940 550 Balance 1080 1940 550 Meds/Results Medications: Active Medications Generic Name Dose Route Start Last Admin Trade Name Freq PRN Reason Stop Dose Admin Acetaminophen 650 mg 10/29/24 07:59 Acetaminophen 325 Mg Tablet PO Q4H PRN Mild Pain (1-3) or Fever Aspirin 81 mg 10/30/24 09:00 10/30/24 08:30 Aspirin 81 Mg Enteric Tablet PO 81 mg QAM ANTHONY Administration Atorvastatin Calcium 40 mg 10/29/24 09:00 10/30/24 08:30 Atorvastatin 40 Mg Tablet PO 40 mg DAILY ANTHONY Administration Carvedilol 3.125 mg 10/31/24 09:00 Carvedilol 3.125 Mg Tablet PO Q12HR ANTHONY Clopidogrel Bisulfate 75 mg 10/30/24 09:00 10/30/24 08:30 Clopidogrel Bisulfate 75 Mg Tablet PO 75 mg QAM ANTHONY Administration Ondansetron HCl 4 mg 10/29/24 07:59 Ondansetron Inj 4 Mg/2 Ml Vial IV PUSH Q4H PRN Nausea Perflutren Lipid Microsphere 0 ml 10/29/24 07:49 Perflutren Lipid Microspheres 1.5 Ml Vial Diluted To 10 Ml Total Volume IV PUSH 11/01/24 07:49 ONCE PRN adequate visualization Protocol Sacubitril/Valsartan 1 tab 10/31/24 09:00 Sacubitril/Valsartan 24-26 Mg Tablet PO Q12HR [facility] Radiology Results: ITS Impressions Head CT 10/29/24 05:23 IMPRESSION: 1. Old lacunar infarct in the right thalamus. I called this result to Dr. Reyna. Head/Neck CTA 10/29/24 05:31 IMPRESSION: 1. Old lacunar infarct in the right thalamus. 2. No aneurysm or significant intracranial arterial stenosis. 3. 0% stenosis of the proximal internal carotid arteries relative to normal distal artery lumen diameters (NASCET criteria). 4. Mild emphysema. Chest X-Ray 10/29/24 06:08 IMPRESSION: 1. Cardiomegaly. Brain MRI 10/29/24 15:08 IMPRESSION: 1. Acute infarcts involving the left frontal lobe and left temporal parietal region. 2. Old lacunar infarct in the right thalamus. 3. Mild nonspecific cerebral white matter disease, which likely represents chronic small vessel ischemic disease. Labs Labs: Laboratory Results - last 24 hr 10/30/24 08:00 WBC 5.5 RBC 4.34 L Hgb 14.5 Hct 44.0 MCV 101.4 H MCH 33.4 MCHC 33.0 RDW 14.1 Plt Count 316 MPV 9.2 Sodium 140 Potassium 4.3 Chloride 108 H Carbon Dioxide 23 Anion Gap 9 BUN 12 Creatinine 1.19 Estim Creat Clear Calc 77 Estimated GFR > 60 Glucose 147 H Calcium 9.3 Total Bilirubin 0.5 AST 36 ALT 24 Alkaline Phosphatase 92 Total Protein 8.0 Albumin 4.4
[2024-10-31] MEDS: SACUBITRIL/VALSARTAN 24-26 MG TABLET 1 TAB PO ×2 (08:45→22:51)
[2024-10-31] MEDS: carvediloL 3.125 MG TABLET PO ×2 (08:45→22:51)
[2024-10-31] MEDS: ATORVASTATIN 40 MG TABLET PO (08:45)
[2024-10-31] MEDS: ASPIRIN 81 MG ENTERIC TABLET PO (08:45)
[2024-10-31] MEDS: CLOPIDOGREL BISULFATE 75 MG TABLET PO (08:46)
[2024-10-31] MEDS: ENOXAPARIN 40 MG/0.4 ML SYRINGE SUB-Q (12:00)
[2024-10-31 13:34] LABS: Anti Nuclear Antibody Pattern Nuclear, Speckled; Anti Nuclear Antibody Titer 1:40 titer
--- NOTE | 2024-10-31 13:55 | ADMGEN ---
This patient, Rimma Elliott, was transferred to [address] [place] [address] Room 327-01 at 1300. Patient/family oriented to hospital policies and general routines including ID bracelet, bed and alarms, visiting hours, pain management, procedures, bathroom and other care routines, personal items, smoking policy, room service/diet, and visiting hours. Information on how to activate the Rapid Response Team has been discussed. Patient/Family are encouraged to report perceived risks to care and to ask questions if they do not understand what they are told or what they should do.
--- NOTE | 2024-10-31 14:23 | PCSTNOTE ---
Communication evaluation completed. Please see EMR for complete results. Subtle deficits noted, ST recommended to allow for home program and high level skills.
[2024-10-31] MEDS: polyethylene glycoL 3350 17 GM POWD.PACK PO (15:51)
--- NOTE | 2024-10-31 16:22 | P.PNIM_ITS ---
Progress Note: A&P Assessment and Plan (1) Hypertension: Code(s): I10 - Essential (primary) hypertension Status: Acute (2) Left-sided cerebrovascular accident (CVA): Code(s): I63.9 - Cerebral infarction, unspecified Status: Acute (3) Expressive aphasia: Code(s): R47.01 - Aphasia Status: Acute (4) Systolic dysfunction: Code(s): I51.9 - Heart disease, unspecified Status: Acute (5) Smoking: Code(s): F17.200 - Nicotine dependence, unspecified, uncomplicated Status: Acute Plan CVA - Patient presents with right arm and leg weakness. CT head with no bleed. CTA head and neck with old right thalamic stroke. No other significant stenosis noted. Patient's neurological symptoms continue to improve throughout his ER stay. Stroke team at [facility] was contacted and given rapid improvement of his neurological symptoms, no tPA or any any intervention recommended. MRI brain revealed acute infarct involving the left frontal lobe and left temporal parietal region. Noted old lacunar infarct in the right thalamus. Aspirin and Plavix along with statin. A1c at 5.4. LDL 79. Workup for hypercoagulable state in progress. Given the bilateral nature of his CVAs, discussed JACLYN but no evidence of AFib and no LV thrombus. Plan for outpatietn cardiac monitoring. Neurology consulted. PT OT ST will be consulted. LV dysfunction - EF 25-30%. Could be chronic from uncontrolled HTN. Cardiology consulted. Entresto and now Coreg added. BP has improved but attempt not to over-correct. Negative bubble. No obvious thrombus. Lifevest offered but patietn refused. Monitor. Hypertension - allow permissive hypertension. Entresto started. Coreg started this morning. Monitor BP overnight. If stable without significant drop, plan discharge tomorrow. Tobacco abuse DVT prophylaxis - Lovenox Code status - full code Subjective Date/time seen: 10/31/24 16:22 Interval history: 44yo male with HTN here for right sided weakness/numbness. Assuming care. Chart reviewed. Patient still with numbness and weakness in his right upper extremity. He has been up walking. No right lower extremity symptoms. He slept well. Exam Narrative: AF 6.3 159/97 90 16 99% ra Gen - NARD Neck -no elevated JVP. No HJR. Chest - CTA bilaterally, nml RR CV - RRR S1/S2. Telemetry showing no significant dysrhythmias. Abd - Soft, NT/ND, Positive BS Ext - No pedal edema Neuro - Alert and oriented. Nonfocal exam except 4/5 strength in the right triceps and right hat trimmer. Speech clear. Psych - Nml mood and affect Skin - Warm and dry Objective Data Vital Signs Vital Signs: Vital Signs - 24 hr 10/30/24 20:00 10/30/24 20:00 10/30/24 20:48 Temperature 98.7 F Pulse Rate 91 91 Respiratory Rate 20 Blood Pressure 183/114 H Pulse Oximetry 99 Oxygen Delivery Room Air 10/30/24 23:57 10/31/24 00:00 10/31/24 04:00 Temperature Pulse Rate 109 H 86 84 Respiratory Rate Blood Pressure Pulse Oximetry Oxygen Delivery 10/31/24 07:44 10/31/24 08:00 10/31/24 08:45 Temperature 98.3 F Pulse Rate 95 92 95 Respiratory Rate 20 Blood Pressure 161/116 H Pulse Oximetry 96 Oxygen Delivery 10/31/24 12:00 10/31/24 13:00 10/31/24 14:40 Temperature 96.3 F L Pulse Rate 95 90 Respiratory Rate 16 Blood Pressure 159/97 H Pulse Oximetry 98 99 Oxygen Delivery Room Air Intake/Output Intake/Output: Intake & Output 10/28/24 10/29/24 10/30/24 10/31/24 23:59 23:59 23:59 23:59 Intake Total 1080 1940 790 Balance 1080 1940 790 Meds/Results Medications: Active Medications Generic Name Dose Route Start Last Admin Trade Name Avtarq PRN Reason Stop Dose Admin Acetaminophen 650 mg 10/29/24 07:59 Acetaminophen 325 Mg Tablet PO Q4H PRN Mild Pain (1-3) or Fever Aspirin 81 mg 10/30/24 09:00 10/31/24 08:45 Aspirin 81 Mg Enteric Tablet PO 81 mg QAM ANTHONY Administration Atorvastatin Calcium 40 mg 10/29/24 09:00 10/31/24 08:45 Atorvastatin 40 Mg Tablet PO 40 mg DAILY ANTHONY Administration Carvedilol 3.125 mg 10/31/24 09:00 10/31/24 08:45 Carvedilol 3.125 Mg Tablet PO 3.125 mg Q12HR ANTHONY Administration Clopidogrel Bisulfate 75 mg 10/30/24 09:00 10/31/24 08:46 Clopidogrel Bisulfate 75 Mg Tablet PO 75 mg QAM ANTHONY Administration Enoxaparin Sodium 40 mg 10/31/24 09:00 10/31/24 12:00 Enoxaparin 40 Mg/0.4 Ml Syringe SUB-Q 40 mg DAILY ANTHONY Administration Ondansetron HCl 4 mg 10/29/24 07:59 Ondansetron Inj 4 Mg/2 Ml Vial IV PUSH Q4H PRN Nausea Perflutren Lipid Microsphere 0 ml 10/29/24 07:49 Perflutren Lipid Microspheres 1.5 Ml Vial Diluted To 10 Ml Total Volume IV PUSH 11/01/24 07:49 ONCE PRN adequate visualization Protocol Polyethylene Glycol 17 gm 10/31/24 18:00 10/31/24 15:51 Polyethylene Glycol 3350 17 Gm Powd.Pack PO 17 gm QPM ANTHONY Administration Sacubitril/Valsartan 1 tab 10/31/24 09:00 10/31/24 08:45 Sacubitril/Valsartan 24-26 Mg Tablet PO 1 tab Q12HR ANTHONY Administration Radiology Results: ITS Impressions Head CT 10/29/24 05:23 IMPRESSION: 1. Old lacunar infarct in the right thalamus. I called this result to Dr. Reyna. Head/Neck CTA 10/29/24 05:31 IMPRESSION: 1. Old lacunar infarct in the right thalamus. 2. No aneurysm or significant intracranial arterial stenosis. 3. 0% stenosis of the proximal internal carotid arteries relative to normal distal artery lumen diameters (NASCET criteria). 4. Mild emphysema. Chest X-Ray 10/29/24 06:08 IMPRESSION: 1. Cardiomegaly. Brain MRI 10/29/24 15:08 IMPRESSION: 1. Acute infarcts involving the left frontal lobe and left temporal parietal region. 2. Old lacunar infarct in the right thalamus. 3. Mild nonspecific cerebral white matter disease, which likely represents chronic small vessel ischemic disease. Labs Labs: Laboratory Results - last 24 hr 10/29/24 07:19 JUAN DANIEL Screen Positive A JUAN DANIEL Titer 1:40 H JUAN DANIEL Pattern Nuclear, speckled A
[2024-11-01] VITALS: BP 167/53; PULSE 81; PULSE 83; RESP 18; TEMP 36.9; O2SAT 95
[2024-11-01 04:00] VITALS: BP 150/117; PULSE 79; PULSE 85; RESP 18; TEMP 36.8; O2SAT 97
[2024-11-01 06:30] VITALS: BP 148/67; PULSE 87; RESP 18; TEMP 36.7; O2SAT 98
[2024-11-01 06:33] LABS: Anion Gap 8 mmol/L (4-12); Blood Urea Nitrogen 14 mg/dL (9-20); Calcium 9.5 mg/dL (8.4-10.2); Carbon Dioxide 24 mmol/L (22-30); Chloride 106 mmol/L (98-107); Estimated CRCL calculation 84 ml/min; Estimated Glomerular Filt Rate > 60; Glucose 103 mg/dL (65-110); Potassium 4.4 mmol/L (3.4-5.0); Sodium 138 mmol/L (137-145)
[2024-11-01 07:31] LABS: Folic Acid 3.6 ng/mL (2.76->20)
--- NOTE | 2024-11-01 07:59 | PM.PNCARD ---
Progress Note: A&P Assessment and Plan (1) Left-sided cerebrovascular accident (CVA): Code(s): I63.9 - Cerebral infarction, unspecified Status: Acute Assessment and Plan: Neurology following. Started on dual antiplatelets and Atorvastatin. Unclear etiology. Given history of alcohol, would have him wear event monitor upon discharge to check for PAF. (2) Systolic dysfunction: Code(s): I51.9 - Heart disease, unspecified Status: Acute Assessment and Plan: Euvolemic. Probably chronic as he is not in acute heart failure. Could be due to prior alcohol use. 10/30/24 Echo: EF 25-30%, mild LVE, grade I diastolic dysfunction, mild RVE, mild LAE, mild MR/TR. Discuss life vest to prevent sudden cardiac arrest but he is not interested. Start Coreg 3.125 mg BID, Entresto 24-26 mg BID. Monitor BP as we do not want to drop it too abruptly given acute stroke. Monitor BP. Will hold off on stress testing or LHC given acute stroke. F/U with me in 2-3 weeks. (3) Smoking: Code(s): F17.200 - Nicotine dependence, unspecified, uncomplicated Status: Acute Assessment and Plan: Counseled regarding smoking cessation. Counseled to abstain from alcohol intake. Subjective Date/time seen: 11/01/24 07:59 Interval history: Denies chest pain or sob. Has right UE weakness/numbness. Exam Const: General: cooperative, healthy appearing and comfortable Orientation/consciousness: oriented to person, oriented to place and oriented to time Resp: Auscultation: clear to auscultation bilaterally, no crackles, no rales, no rhonchi and no wheezes Cardio: Rate: regular rate Rhythm: regular rhythm Heart sounds: no murmurs Peripheral pulses: dorsalis pedis present Neuro: General: oriented to person, oriented to place and oriented to time Extrem: Right lower extremity: no edema Left lower extremity: no edema Objective Data Vital Signs Vital Signs: Vital Signs - 24 hr 10/31/24 08:00 10/31/24 08:45 10/31/24 12:00 Temperature Pulse Rate 92 95 95 Respiratory Rate Blood Pressure Pulse Oximetry Oxygen Delivery 10/31/24 13:00 10/31/24 14:40 10/31/24 20:00 Temperature 96.3 F L 97.9 F Pulse Rate 90 93 Respiratory Rate 16 18 Blood Pressure 159/97 H 171/40 H Pulse Oximetry 98 99 97 Oxygen Delivery Room Air 10/31/24 20:00 10/31/24 20:00 11/01/24 00:00 Temperature Pulse Rate 84 81 Respiratory Rate Blood Pressure Pulse Oximetry Oxygen Delivery Room Air 11/01/24 00:00 11/01/24 04:00 11/01/24 04:00 Temperature 98.5 F 98.2 F Pulse Rate 83 85 79 Respiratory Rate 18 18 Blood Pressure 167/53 H 150/117 H Pulse Oximetry 95 97 Oxygen Delivery 11/01/24 06:30 Temperature 98.1 F Pulse Rate 87 Respiratory Rate 18 Blood Pressure 148/67 H Pulse Oximetry 98 Oxygen Delivery Intake/Output Intake/Output: Intake & Output 10/29/24 10/30/24 10/31/24 11/01/24 23:59 23:59 23:59 23:59 Intake Total 1080 1940 1030 Balance 1080 1940 1030 Meds/Results Medications: Active Medications Generic Name Dose Route Start Last Admin Trade Name Freq PRN Reason Stop Dose Admin Acetaminophen 650 mg 10/29/24 07:59 Acetaminophen 325 Mg Tablet PO Q4H PRN Mild Pain (1-3) or Fever Aspirin 81 mg 10/30/24 09:00 10/31/24 08:45 Aspirin 81 Mg Enteric Tablet PO 81 mg QAM ANTHONY Administration Atorvastatin Calcium 40 mg 10/29/24 09:00 10/31/24 08:45 Atorvastatin 40 Mg Tablet PO 40 mg DAILY ANTHONY Administration Carvedilol 3.125 mg 10/31/24 09:00 10/31/24 22:51 Carvedilol 3.125 Mg Tablet PO 3.125 mg Q12HR ANTHONY Administration Clopidogrel Bisulfate 75 mg 10/30/24 09:00 10/31/24 08:46 Clopidogrel Bisulfate 75 Mg Tablet PO 75 mg QAM ANTHONY Administration Enoxaparin Sodium 40 mg 10/31/24 09:00 10/31/24 12:00 Enoxaparin 40 Mg/0.4 Ml Syringe SUB-Q 40 mg DAILY ANTHONY Administration Ondansetron HCl 4 mg 10/29/24 07:59 Ondansetron Inj 4 Mg/2 Ml Vial IV PUSH Q4H PRN Nausea Polyethylene Glycol 17 gm 10/31/24 18:00 10/31/24 15:51 Polyethylene Glycol 3350 17 Gm Powd.Pack PO 17 gm QPM ANTHONY Administration Sacubitril/Valsartan 1 tab 10/31/24 09:00 10/31/24 22:51 Sacubitril/Valsartan 24-26 Mg Tablet PO 1 tab Q12HR ANTHONY Administration Radiology Results: ITS Impressions Head CT 10/29/24 05:23 IMPRESSION: 1. Old lacunar infarct in the right thalamus. I called this result to Dr. Reyna. Head/Neck CTA 10/29/24 05:31 IMPRESSION: 1. Old lacunar infarct in the right thalamus. 2. No aneurysm or significant intracranial arterial stenosis. 3. 0% stenosis of the proximal internal carotid arteries relative to normal distal artery lumen diameters (NASCET criteria). 4. Mild emphysema. Chest X-Ray 10/29/24 06:08 IMPRESSION: 1. Cardiomegaly. Brain MRI 10/29/24 15:08 IMPRESSION: 1. Acute infarcts involving the left frontal lobe and left temporal parietal region. 2. Old lacunar infarct in the right thalamus. 3. Mild nonspecific cerebral white matter disease, which likely represents chronic small vessel ischemic disease. Labs Labs: Laboratory Results - last 24 hr 10/29/24 10/29/24 11/01/24 06:44 07:19 05:40 Prot C Funct Activity 109 Protein S Activity 130 Sodium 138 Potassium 4.4 Chloride 106 Carbon Dioxide 24 Anion Gap 8 BUN 14 Creatinine 1.08 Estim Creat Clear Calc 84 Estimated GFR > 60 Glucose 103 Calcium 9.5 Vitamin B12 778.0 Folate 3.6 JUAN DANIEL Screen Positive A JUAN DANIEL Titer 1:40 H JUAN DANIEL Pattern Nuclear, speckled A Add Miscellaneous Test See note
[2024-11-01 08:00] VITALS: PULSE 81; RESP 18; O2SAT 98
[2024-11-01 09:43] VITALS: PULSE 81
[2024-11-01] MEDS: carvediloL 3.125 MG TABLET PO (09:43)
[2024-11-01] MEDS: ASPIRIN 81 MG ENTERIC TABLET PO (09:43)
[2024-11-01] MEDS: ENOXAPARIN 40 MG/0.4 ML SYRINGE SUB-Q (09:43)
[2024-11-01] MEDS: SACUBITRIL/VALSARTAN 24-26 MG TABLET 1 TAB PO (09:43)
[2024-11-01] MEDS: CLOPIDOGREL BISULFATE 75 MG TABLET PO (09:43)
[2024-11-01] MEDS: ATORVASTATIN 40 MG TABLET PO (09:45)
--- NOTE | 2024-11-01 11:29 | P.DS_ITS ---
DS: Admitting Diagnosis Discharge Date 11/01/24 Admitting Diagnosis Right sided weakness/numbness DS: Discharge Diagnosis Discharge Diagnosis (1) Hypertension: Code(s): I10 - Essential (primary) hypertension Status: Acute (2) Left-sided cerebrovascular accident (CVA): Code(s): I63.9 - Cerebral infarction, unspecified Status: Acute (3) Expressive aphasia: Code(s): R47.01 - Aphasia Status: Acute (4) Systolic dysfunction: Code(s): I51.9 - Heart disease, unspecified Status: Acute (5) Smoking: Code(s): F17.200 - Nicotine dependence, unspecified, uncomplicated Status: Acute DS: Summary Hospital Course Reason for hospitalization: 44yo male with HTN here for right sided weakness/numbness. Please see H&P for d etails. Hospital Course: Patient presented with right arm and leg weakness. CT head showing no acute findings. CTA head and neck with old right thalamic lacunar stroke. No significant stenosis noted. Mild emphysema also noted. Patient smokes and was educated about the benefit of abstaining from tobacco use. Patient's neurological symptoms continue to improve throughout his ER stay. Stroke team at [facility] was contacted and given rapid improvement of his neurological symptoms, no tPA or any any intervention recommended. Neurology and Cardiology consulted. MRI brain revealed acute infarct involving the left frontal lobe and left temporal parietal region. Noted old lacunar infarct in the right thalamus. Aspirin and Plavix along with statin started. A1c at 5.4. LDL 79. Workup for hypercoagulable state in progress. Given the bilateral nature of his CVAs, discussed JACLYN but no evidence of AFib by telemetry and no LV thrombus. Plan for outpatient cardiac monitoring. PT/OT/ST worked with patient. Patient had an Echo showing LV systolic dysfunction with EF 25-30%, Grade I diastolic dysfunction, mild valve disease and negative bubble study. No obvious LV thrombus. Low EF could be chronic from uncontrolled HTN and/or alcohol abuse. Entresto and Coreg added. BP has improved with an attempt not to over-correct. Lifevest was offered but patient declined. He overall did well and was able to be discharged home on 11/01/24. Status at Discharge Cognitive/behavioral status at discharge: stable Time Spent with Patient Time attestation: Total time spent providing and/or coordinating discharge services: 35 minutes Time spent: Greater than 30 minutes Exam Narrative: AF 98.1 148/67 81 18 98% ra Gen - NARD Chest - CTA bilaterally, nml RR CV - RRR S1/S2. Telemetry showing no significant dysrhythmias. Abd - Soft, NT/ND, Positive BS Ext - No pedal edema Neuro - Alert and appropriate Psych - Nml mood and affect Skin - Warm and dry DS: Data Data Completed and Pending Labs on day of discharge: Labs from last 24 hours 11/01/24 10/29/24 10/29/24 05:40 07:19 06:44 Prot C Funct Activity 109 Protein S Activity 130 Sodium 138 Potassium 4.4 Chloride 106 Carbon Dioxide 24 Anion Gap 8 BUN 14 Creatinine 1.08 Estim Creat Clear Calc 84 Estimated GFR > 60 Glucose 103 Calcium 9.5 Vitamin B12 778.0 Folate 3.6 JUAN DANIEL Screen Positive A JUAN DANIEL Titer 1:40 H JUAN DANIEL Pattern Nuclear, speckled A Add Miscellaneous Test See note Discharge Plan Discharge Attending physician on discharge: Quinton Preciado Consulting providers: Soren Snyder; Diya Isaacs; Marco Ludwig Discharging Clinician: Quinton Preciado Anticipated Discharge Date/Time: 11/01/24 11:47 Patient Disposition: Home, Self-Care Activity: no driving and as tolerated Diet: heart healthy Discharge Instructions: Please avoid use of all products containing alcohol. Please avoid use of all products that contain nicotine or tobacco. Discuss with your doctor about when you can start driving. Check blood pressure 1 to 2 times a day. Record and bring into your doctor for review. Call your doctor if your blood pressure is greater than 180/110. Take precautions to avoid falls. Rise slowly from a lying or sitting position. Pause before standing or walking. Check daily morning weights after voiding. Call your doctor if you gain more than 3 lb in 2 days or 5 lb in 1 week. Contact your doctor or call 911 and come to the Emergency Room if you have increasing shortness of breath or other worrisome symptoms. Avoid NSAIDs (ibuprofen, naproxen, Aleve). Tylenol is safe to take. Physical, occupational and speech therapy is recommended for you as an outpatient. Please arrange to be seen by primary care doctor to have these services set up for you. Follow-up with your primary care provider in 1-2 weeks. Please call for appointment. Follow-up with Dr Ludwig, Cardiology, in 1-2 weeks. Please call for an appointment. Follow-up with Dr Isaacs, Neurologist in 3-4 weeks. Please call for an appointment. Thank you for using [facility] for your health care needs. Patient Instructions: Antibiotic Form, Atorvastatin (By mouth), Clopidogrel (By mouth), Left Hemispheric Stroke (DC), Hypertension (DC) Patient Language: Tamazight Stand Alone Forms: General Discharge Information Follow-up/Referrals: Marco Ludwig DO [Physician] - Call for Appointment Diya Isaacs MD [Physician] - Call for Appointment PHYSICIAN,LIQUEFIED NATURAL GAS OPERATOR [Primary Care Provider] - Call for Appointment Discharge Medications: New clopidogrel 75 mg Tablet 75 mg PO QAM Qty: 30 2RF aspirin 81 mg Tablet,Delayed Release (Dr/Ec) 81 mg PO QAM Qty: 30 2RF Entresto 24-26 mg Tablet 1 tab PO Q12HR Qty: 60 2RF carvedilol [Coreg] 3.125 mg Tablet 3.125 mg PO Q12HR Qty: 60 2RF atorvastatin 40 mg Tablet 40 mg PO DAILY Qty: 30 2RF No Action No Home Medications Date of admission: 10/30/24 14:53 Primary Care Provider: PHYSICIAN,LIQUEFIED NATURAL GAS OPERATOR Admitting Provider: Benny Taveras Attending physician on admission: Benny Taveras Condition: Stable Hospitalist MIPS Heart Failure (Exclusion) Patient has history of Heart Transplant or Left Ventricular Assistive Device?: No IF YES, STOP HERE Heart Failure (Qualifier) Patient has current or prior documentation of LVEF less than or equal to 40%, or mod/servere depressed LVSF?: Yes IF NO, STOP HERE If Yes, Heart Failure (Qualifier) Patient was prescribed or already taking an Angiotensin-Converting Enzyme (DARLING) Inhibitor, or Antiotensin Receptor Yumiko (ARB): Yes Patient was prescribed or already taking bisoprolol, carvedilol, or sustained release metoprolol succinate: Yes
[2024-11-01 12:00] VITALS: PULSE 77
--- NOTE | 2024-11-01 12:31 | WPDNEUROPN ---
Progress Note: A&P Assessment and Plan (1) Left-sided cerebrovascular accident (CVA): Code(s): I63.9 - Cerebral infarction, unspecified Status: Acute (2) Hypertension: Code(s): I10 - Essential (primary) hypertension Status: Acute (3) Systolic dysfunction: Code(s): I51.9 - Heart disease, unspecified Status: Acute (4) Smoking: Code(s): F17.200 - Nicotine dependence, unspecified, uncomplicated Status: Acute Plan Risk factor management and dual antiplatelets and statins are recommended. That she for follow-up in my office. JUAN DANIEL was slightly positive however protein S and protein C were normal. I would like to see him for follow-up in my office to go over the results of other blood tests such as factor 5 except for a of for hypercoagulable workup. He should also follow with a design drafter closely. Subjective Date/time seen: 11/01/24 12:31 Interval history: the patient is 44-year-old male who presented to the hospital with onset of weakness in the right side of the body. He is doing much better now in fact is able to walk independently. He feels the right hand is slightly weak compared to the left side but this is also significantly better than before. He has been evaluated by design drafter and found to have ejection fraction of around 25-30% and this is being attributed to possible alcohol use in the past. Patient also smokes. He was offered life vest that he declined. He is on dual antiplatelets and statins. No other new symptoms Review of Systems Review of Systems: All systems reviewed & are unremarkable except as noted in HPI and below Constitutional: Constitutional: Denies chills, Denies fever(s) and Denies weight loss Eyes: Eyes: Denies diplopia and Denies loss of vision ENT: Denies dizziness, Denies hearing loss and Denies tinnitus Cardiovascular: Cardiovascular: Denies chest pain, Denies syncope and Denies dyspnea Respiratory: Respiratory: Denies cough, Denies dyspnea and Denies wheezing Gastrointestinal: Gastrointestinal: Denies abdominal pain, Denies change in bowel habits and Denies vomiting Genitourinary: Genitourinary: Denies urinary incontinence Musculoskeletal: Musculoskeletal: Denies arthralgias and Denies joint swelling Integumentary/Breasts: Skin/Breast: Denies new lesions and Denies rash Neurologic: Reports as per HPI, Denies dizziness, Denies syncope and Denies loss of vision Psychiatric: Psychiatric: Denies anxiety and Denies depression Endocrine: Endocrine: Denies cold intolerance and Denies heat intolerance Hematologic/Lymphatic: Hematologic/Lymphatic: Denies easy bleeding and Denies easy bruising Allergic/Immunologic: Allergic/Immunologic: Denies no additional allergic/immunologic complaints and Denies wheezing Exam Const: General: no acute distress Orientation/consciousness: oriented to person, oriented to place and oriented to time HENMT: Head: normocephalic and atraumatic Mouth: Yes Normal oral and palatal mucosa present Eyes: General: appearance normal, both eyes and all related structures Eyelids: eyelids normal Conjunctivae: conjunctivae normal Pupils: Equal, round and reactive pupils present EOM: No Nystagmus present Resp: Effort & Inspection: normal respiratory effort Cardio: Rhythm: regular rhythm Skin: General skin exam: normal color Neuro: General: oriented to person, oriented to place and oriented to time Cranial nerves: Yes CN's II-XII intact bilaterally, Yes Equal, round and reactive pupils present, Yes Bilaterally intact EOM present, Yes Nystagmus not present, Yes Normal facial strength present, Yes facial symmetry, Yes Midline tongue present, Yes Symmetric palate elevation present, Yes Normal hearing present, Yes Ability to bilaterally elevate shoulders present and No Nystagmus present Speech: normal speech Gait exam (Neuro): Normal gait present Motor exam (neuro): 5/5 motor strength present throughout, Normal motor muscle tone present throughout and Motor abnormalities not present Sensory Exam: normal sensation Deep tendon reflexes (DTR's): Right triceps reflex intensity grade: 1+, Left triceps reflex intensity grade: 1+, Rt Biceps (C5, C6): 1+, Left biceps reflex intensity grade: 1+, Right brachioradialis reflex intensity grade: 1+, Left brachioradialis reflex intensity grade: 1+, Right patellar reflex intensity grade: 1+, Left patellar reflex intensity grade: 1+, Right ankle reflex intensity grade: 1+ and Left ankle reflex intensity grade: 1+ Coordination: [id number] test normal, tandem gait normal and Romberg test negative Other: 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 which is fairly close to normal this time Extrem: General: normal to inspection Psych: Appearance: grossly normal Mental Status: mental status grossly normal Affect: normal affect Attitude: cooperative Objective Data Vital Signs Vital Signs: Vital Signs - 24 hr 10/31/24 13:00 10/31/24 14:40 10/31/24 20:00 Temperature 96.3 F L 97.9 F Pulse Rate 90 93 Respiratory Rate 16 18 Blood Pressure 159/97 H 171/40 H Pulse Oximetry 98 99 97 Oxygen Delivery Room Air 10/31/24 20:00 10/31/24 20:00 11/01/24 00:00 Temperature Pulse Rate 84 81 Respiratory Rate Blood Pressure Pulse Oximetry Oxygen Delivery Room Air 11/01/24 00:00 11/01/24 04:00 11/01/24 04:00 Temperature 98.5 F 98.2 F Pulse Rate 83 85 79 Respiratory Rate 18 18 Blood Pressure 167/53 H 150/117 H Pulse Oximetry 95 97 Oxygen Delivery 11/01/24 06:30 11/01/24 08:00 11/01/24 08:00 Temperature 98.1 F Pulse Rate 87 81 81 Respiratory Rate 18 18 Blood Pressure 148/67 H Pulse Oximetry 98 98 Oxygen Delivery Room Air 11/01/24 09:43 Temperature Pulse Rate 81 Respiratory Rate Blood Pressure Pulse Oximetry Oxygen Delivery EXAMINATION: MR brain/brain stem wo/w con DATE: 10/29/2024 14:33 INDICATION: Transient ischemic attack. Right arm paralysis. TECHNIQUE: Magnetic resonance imaging (MRI) of the brain and brainstem was performed without and with 20 mL ProHance intravenous contrast. COMPARISON: Head CT 10/29/2024 FINDINGS: There is a small acute infarct in the left frontal lobe. There is an acute infarct involving the left temporal parietal region. There is an old lacunar infarct in the right thalamus. There are scattered areas of nonspecific increased T2-weighted signal intensity in the cerebral white matter. There is no intracranial hemorrhage or abnormal mass lesion. The ventricles are normal in size. There is mild mucosal thickening in the paranasal sinuses. The orbits are normal. The mastoid air cells are normal. IMPRESSION: 1. Acute infarcts involving the left frontal lobe and left temporal parietal region. 2. Old lacunar infarct in the right thalamus. 3. Mild nonspecific cerebral white matter disease, which likely represents chronic small vessel ischemic disease. Reviewed, dictated and finalized at location A. EXAMINATION: CTA brain carotid DATE: 10/29/2024 05:30 INDICATION: Right arm paralysis. TECHNIQUE: Computed tomographic angiography (CTA) of the head was performed with 100 mL Omnipaque-350 intravenous contrast. CTA of the neck was performed with intravenous contrast. Automated exposure control and iterative reconstruction technique were employed. The dose-length product was 1098.86 mGy-cm. Maximum intensity projection and volume rendered 3D-reconstructions were created by the technologist on a separate workstation. COMPARISON: Head CT 10/29/2024 FINDINGS: HEAD CTA: There is an old lacunar infarct in the right thalamus. There is no intracranial hemorrhage, acute infarction, or abnormal intracranial mass lesion. The ventricles are normal in size. The orbits are normal. There is mild mucosal thickening in the paranasal sinuses. The mastoid air cells are normal. The vertebral arteries are codominant. There is mild stenosis of basilar artery and the posterior cerebral arteries. There is no significant stenosis of the intracranial internal carotid arteries or anterior or middle cerebral arteries. Anterior communicating artery is normal. Posterior communicating arteries are not identified. There is no aneurysm. NECK CTA: There is mild emphysema. There is mild scarring at left lung apex. There is no significant stenosis of the vertebral arteries. There is minimal plaque in the proximal internal carotid arteries. There is 0% stenosis of the proximal right internal carotid artery relative to normal distal artery lumen diameter (NASCET criteria). There is 0% stenosis of the proximal left internal carotid artery relative to normal distal artery lumen diameter. There is a carious lesion in a right maxillary molar. There is mild cervical spondylosis. IMPRESSION: 1. Old lacunar infarct in the right thalamus. 2. No aneurysm or significant intracranial arterial stenosis. 3. 0% stenosis of the proximal internal carotid arteries relative to normal distal artery lumen diameters (NASCET criteria). 4. Mild emphysema. Reviewed, dictated and finalized at location A. Intake/Output Intake/Output: Intake & Output 10/29/24 10/30/24 10/31/24 11/01/24 23:59 23:59 23:59 23:59 Intake Total 1080 1940 1030 240 Balance 1080 1940 1030 240 Meds/Results Medications: Active Medications Generic Name Dose Route Start Last Admin Trade Name Freq PRN Reason Stop Dose Admin Acetaminophen 650 mg 10/29/24 07:59 Acetaminophen 325 Mg Tablet PO Q4H PRN Mild Pain (1-3) or Fever Aspirin 81 mg 10/30/24 09:00 11/01/24 09:43 Aspirin 81 Mg Enteric Tablet PO 81 mg QAM ANTHONY Administration Atorvastatin Calcium 40 mg 10/29/24 09:00 11/01/24 09:45 Atorvastatin 40 Mg Tablet PO 40 mg DAILY ANTHONY Administration Carvedilol 3.125 mg 10/31/24 09:00 11/01/24 09:43 Carvedilol 3.125 Mg Tablet PO 3.125 mg Q12HR ANTHONY Administration Clopidogrel Bisulfate 75 mg 10/30/24 09:00 11/01/24 09:43 Clopidogrel Bisulfate 75 Mg Tablet PO 75 mg QAM ANTHONY Administration Enoxaparin Sodium 40 mg 10/31/24 09:00 11/01/24 09:43 Enoxaparin 40 Mg/0.4 Ml Syringe SUB-Q 40 mg DAILY ANTHONY Administration Ondansetron HCl 4 mg 10/29/24 07:59 Ondansetron Inj 4 Mg/2 Ml Vial IV PUSH Q4H PRN Nausea Polyethylene Glycol 17 gm 10/31/24 18:00 10/31/24 15:51 Polyethylene Glycol 3350 17 Gm Powd.Pack PO 17 gm QPM ANTHONY Administration Sacubitril/Valsartan 1 tab 10/31/24 09:00 11/01/24 09:43 Sacubitril/Valsartan 24-26 Mg Tablet PO 1 tab Q12HR ANTHONY Administration Radiology Results: ITS Impressions Head CT 10/29/24 05:23 IMPRESSION: 1. Old lacunar infarct in the right thalamus. I called this result to Dr. Reyna. Head/Neck CTA 10/29/24 05:31 IMPRESSION: 1. Old lacunar infarct in the right thalamus. 2. No aneurysm or significant intracranial arterial stenosis. 3. 0% stenosis of the proximal internal carotid arteries relative to normal distal artery lumen diameters (NASCET criteria). 4. Mild emphysema. Chest X-Ray 10/29/24 06:08 IMPRESSION: 1. Cardiomegaly. Brain MRI 10/29/24 15:08 IMPRESSION: 1. Acute infarcts involving the left frontal lobe and left temporal parietal region. 2. Old lacunar infarct in the right thalamus. 3. Mild nonspecific cerebral white matter disease, which likely represents chronic small vessel ischemic disease. Labs Labs: Laboratory Results - last 24 hr 10/29/24 10/29/24 11/01/24 06:44 07:19 05:40 Prot C Funct Activity 109 Protein S Activity 130 Sodium 138 Potassium 4.4 Chloride 106 Carbon Dioxide 24 Anion Gap 8 BUN 14 Creatinine 1.08 Estim Creat Clear Calc 84 Estimated GFR > 60 Glucose 103 Calcium 9.5 Vitamin B12 778.0 Folate 3.6 JUAN DANIEL Screen Positive A JUAN DANIEL Titer 1:40 H JUAN DANIEL Pattern Nuclear, speckled A Add Miscellaneous Test See note
[2024-11-01 13:28] LABS: PS/PT AB IgG <9 U (< OR = 30); PS/PT AB IgM <9 U (< OR = 30)
[2024-11-01 15:03] LABS: Anti Cardio Antibody IgM <2.0 MPL-U/mL; Anti Cardiolipin Antibody IgA 2.1 APL-U/mL; Anti Cardiolipin Antibody IgG <2.0 GPL-U/mL
[2024-11-05 14:03] LABS: Factor V (Leiden) Mutation NEGATIVE
== END 2024-11-01 13:27 | disposition home or self-care (01) | DRG 65 ==
LOC: ANHED 07:44 → ANHIMU 08:32 → ANH3MEDSUR 11-01 11:52 → ANHIMU 11-02 16:02
PROVIDERS: Admitting Provider Internal Medicine; Emergency Provider Student in an Organized Health Care Education/Training Program; Visit Provider Internal Medicine
DX: I63.9 Cerebral infarction, unspecified (principal); G81.91 Hemiplegia, unspecified affecting right dominant side; R47.01 Aphasia; R29.707 NIHSS score 7; I51.9 Heart disease, unspecified; I10 Essential (primary) hypertension; E78.5 Hyperlipidemia, unspecified; F17.210 Nicotine dependence, cigarettes, uncomplicated; Z86.73 Personal history of transient ischemic attack (TIA), and cerebral infarction without residual deficits
CPT/HCPCS: 36415; 70450; 70496; 70498; 70553; 71045; 80048; 80053; 80061; 81241; 82607; 82746; 82948; 83036; 83880; 84484; 85025; 85027; 85303; 85306; 85610; 85652; 85730; 86038; 86039; 86146; 86225; 86593; 92507; 92523; 93005; 93306; 96374; 96375; 96376; 97116; 97161; 97165; 99285; A9270; A9579; G0378; J1650; Q9967

== ENCOUNTER 2025-02-27 08:35 | Outpatient (CLI) | payer OTHER, SELFPAY ==
--- OUTSIDE RECORDS SUMMARY | 2025-02-27 08:40 | XMS_ITS | Encounter Summary ---
Author Organization [facility] Address [address] [place] [address] Care Team Providers Care Flat Sheet Maker Name Role Phone Alecia Preciado MD Primary Care Provider [phone] Reason for Visit * Reason Comments OT Treatment * Physical Therapy (Routine) - Authorized Specialty Diagnoses / Procedures Referred By Contac t Referred To Contact Occupational Therapy Diagnoses Cerebrovascular accident (CVA), unspecified mechanism (HCC) Right hand weakness Sergio Moyer Si, MD [address] [place] [id number] Phone: tel: fax: [facility] OP Physical Therapy [address] [place] [id number] Phone: tel: fax: Referral ID Status Reason Start Date Expiration Date Visits Requested Visits Authorized [id number] Authorized Evaluate and Treat 01/24/2025 08/07/2025 24 30 Encounter Details Date Type Department Care Team (Late st Contact Info) Description 02/20/2025 3:00 PM CDT Therapy [facility] OP Occup Therapy [address] [place] [address] Omar Bellamy OT Cerebrovascular accident (CVA), unspecified mechanism (HCC) (Primary Dx); Right hand weakness Social History Tobacco Use Types Packs/Day Years Used Date Smoking Tobacco: Never Smokeless Tobacco: Never Sex and Gender Information Value Date Recorded Sex Assigned at Not on file Legal 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 Occupational Therapy Visit 02/20/2025 Rimma Elliott 1980 ICD-10-CM 1. Cerebrovascular accident (CVA), unspecified mechanism (HCC) I63.9 2. Right hand weakness R29.898 Treatment Diagnosis: CVA 10/2024 resulting in decreased RUE strength/endurance for shoulder <> wrist, decreased RUE clerical receptionist strength, decreased RUE sensation and loss of protective sensation impacting safety during ADL/IADLs, decreased RUE hand function/FMC skills, possible mild cognitive impairment (including decreased safety awareness with associated RUE sensation loss/impairments) which requires further assessment Precautions: None reported/noted Towel Inspector Services Utilized: NO Patient is identified by name and date of on this visit. SUBJECTIVE: Pt reports, That was fine, we can do it again re: fluidotherapy tolerance with active hand exercises for RUE sensory re-education Pain today is 0/10. OBJECTIVE: Treatment Provided This Date: Pt participated in 55 minute skilled OT treatment session that was focused on HEP teachback/education, oculomotor function, R hand strengthening/function/sensory re-education. Pt ambulates to OT clinic indep. Pt reports decreased compliance with pencil push ups HEP initially, agreeable to complete teachback. Pt engages in oculomotor HEP performance teachback for activities/exercises below with performance as follows x2 minutes each; - pencil push ups: , indep, min difficulty, good performance, min verbal cues for technique - Saccades (horizontal and vertical): max assist to recall appropriate technique/performance, min difficulty - Gaze Stabilization (horizontal and vertical): first time completed/educated, min difficulty - Lucy string educated, min difficulty Pt participated in the following BTE work simulated regimen R hand strengthening/endurance exercises x 60 seconds each to improve strength/endurance: RUE clerical receptionist (first completion), RUE lateral pinch (first completion), RUE tripod pinch (first completion). Under supervision of modalities trained therapist, pt then completes RUE active hand exercises (composite digit flexion/extension using squeeze ball and serial opposition) while RUE in Fluidotherapy x113 degrees x70 air speed x10 minutes for RUE sensory re-education and hand function. Pt tolerates fluidotherapy and doffed from it without aversive reaction. Pt ambulates to [facility] with no further questions/concerns, and session concluded. Objective Measurements taken: N/A Home Exercise Program: HOME EXERCISE PROGRAM Educated on Progressing Independent Compliant Comments RUE Edema management 2. R Sensory Re-ed 3. RUE theraband 4. RUE Fast Food Assistant Restaurant Manager 02/07/25 02/12/25 Yes multiple times daily 5. RUE Putty 02/12/25 02/14/25 X2 daily, per pt report Yellow 02/12 - HEP selected exercises in media 6. RUE FMC 7. RUE active hand 02/07/25 02/12/25 x2 daily 8. Oculomotor (pencil push-ups, lucy string, saccades, gaze stabilization) 02/07/25 - introduced pencil push-ups 02/20/25 educated on saccades, gaze stabilization, lucy string X2 daily, per pt report ASSESSMENT: Patient tolerated today's treatment well. Pt demonstrates good performance with pencil push ups HEPthis date, educated on additional oculomotor exercises this date and would benefit from additional education/follow up and teachback to improve performance/compliance. Pt tolerated BTE and fluidotherapy activities well this date without aversive reaction. Pt would benefit from further RUE FMC and hand function training at future treatment sessions. Pt would benefit from additional OT services to address deficits. Improve ADL/IADL performance/participation, return to PLOF and improve QOL/safety. Goals: STGs to be met by 03/27/25 Pt will verbalize warning signs/symptoms of stroke for improved speed of identification in case of future stroke. (MET 02/12/25) Pt will verbalize plan to manage relevant stroke risk factors to reduce risk for future stroke. (MET 02/12/25) Pt to trial AE to increase independence with cutting food and meal prep. (MET 02/14/25) Pt to trial AE to manage fasteners to increase independence with dressing. (MET 02/14/25) Pt to demonstrate ability to doff/don shirt independently with AE and/or visual handout as needed to show increased independence with upper body dressing. (MET 02/14/25 - PT demonstrates putting on buttoned shirt independently with no use of AE.) (DISCONTINUE 02/14/25- PT reports no difficulty with LBD that requires use of AE to complete) Pt to open/close x5 various size/shape/type food containers using AE/DME/Strategies min verbal cuesfor improved meal prep/food access performance/independence. (PROGRESSING 02/14/25- he opened 3x different jars, working toward 5x) NEW GOAL (added 02/07/25): Pt to reported 100% compliance with medications (including am and pm meds)x 1 weeks with use of external memory aids. (Progressing 02/07/25) LTGs to be met by 04/24/25 Pt to improve RUE shoulder flexion MMT score to 4/5 to demonstrate improved strength for use in ADL/IADLs. (PROGRESSING 02/14/25) Pt to improve RUE elbow flexion MMT score to 4+/5 to demonstrate improved strength for use in ADL/IADLs. Pt to improve RUE elbow extension MMT score to 4/5 to demonstrate improved strength for use in ADL/IADLs. Pt to improve RUE wrist flexion MMT score to 4+/5 to demonstrate improved strength for use in ADL/IADLs. (PROGRESSING 02/14/25) Pt to improve RUE wrist extension MMT score to 4+/5 to demonstrate improved strength for use in ADL/IADLs. (PROGRESSING 02/14/25) Pt to decrease time on RUE 9 hole peg test to 49 seconds or less to demonstrate improved FMC for use in ADL/IADLs. Pt to increase RUE clerical receptionist strength to at least 15 lbs to demonstrate increased strength for use in ADLs/IADLs. (Progressing 02/20/25) Pt to complete 10+ items on Level 3 Upper Extremity functional obstacle course with SBA to demonstrate improved functional use of RUE during ADL/IADL tasks. NEW GOAL (added 02/07/25): Pt to improve convergence breaking point to 7 inches or less to demonstrate improved oculomotor skills for reduced diplopia during daily tasks. NEW GOAL (added 02/07/25): Pt to improve overall CTMT2 score to at least below average to demonstrate improved dual/alternating attention for carryover into daily activities. Plan: Continue skilled OT Plan of Care: Frequency/duration of OT treatment: 1-2 times per week for 12 weeks Initial Certification dates from 01/30/25 to 04/24/25. Progress Note #2 due: 03/27/25 Order Expiration/Re-certification due: 04/24/25 Omar Bellamy, JACKELINE, OTR/L, CBIS [facility] [email or web address] documented in this encounter Plan of Treatment Not on file documented as of this encounter Visit Diagnoses Diagnosis Cerebrovascular accident (CVA), unspecified mechanism (HCC)- Primary Right hand weakness Muscle weakness (generalized) documented in this encounter Care Teams Flat Sheet Maker Relationship Specialty Start Date End Date Alecia Preciado MD [address] [address] PCP - General Family Medicine 11/21/24 documented as of this encounter
--- OUTSIDE RECORDS SUMMARY | 2025-02-27 08:40 | XMS_ITS | Referral Summary ---
Author Organization [facility] [address] Address [address] [place] [address] Care Team Providers Care Property Accountant Name Role Phone Alecia Preciado MD Primary Care Provider +1- [phone] Encounters Date Type Department Care Team Description 02/20/2025 Results Follow-Up [facility] Neurology [address] [place] [address] [place] [phone] Rachael Longoria MA US Carotids Bilateral 02/20/2025 3:00 PM CDT Therapy [facility] OP Occup Therapy [address] [place] [address] Omar Bellamy OT Cerebrovascular accident (CVA), unspecified mechanism (HCC) (Primary Dx); Right hand weakness 02/18/2025 2:00 PM CDT - 02/18/2025 11:59 PM CDT Hospital Encounter [facility] Cardiac Testing [address] [place] [address] Cerebrovascular accident (CVA), unspecified mechanism (HCC) Discharge Disposition: Discharge to home or self care 02/14/2025 2:00 PM CDT Therapy [facility] OP Occup Therapy [address] [place] [phone] Omar Bellamy, OT Cerebrovascular accident (CVA), unspecified mechanism (HCC) (Primary Dx); Right hand weakness 02/12/2025 Telephone [facility] Neurology [address] [place] [address] [place] [phone] [facility], Serigo Mcfarlane MD FMLA/DISABILTY 02/12/2025 2:00 PM CDT Therapy [facility] OP Occup Therapy [address] [place] [address] Omar Bellamy OT Cerebrovascular accident (CVA), unspecified mechanism (HCC) (Primary Dx); Right hand weakness 02/07/2025 4:00 PM CDT Therapy [facility] OP Occup Therapy [address] [place] [address] Ebony Kamara OT Cerebrovascular accident (CVA), unspecified mechanism (HCC) (Primary Dx); Right hand weakness 02/01/2025 Plan of Care Documentation [facility] OP Occup Therapy [address] [place] [address] 01/30/2025 3:00 PM CDT Therapy [facility] OP Occup Therapy [address] [place] [address] Omar Bellamy OT Cerebrovascular accident (CVA), unspecified mechanism (HCC) (Primary Dx); Right hand weakness 01/24/2025 1:00 PM CDT Office Visit [facility] Neurology [address] [place] [address] [address] [place] [address] [facility], Sergio Mcfarlane MD Cerebrovascular accident (CVA), unspecified mechanism (HCC) (Primary Dx); Right hand weakness from Last 3 Months Allergies No known active allergies Medications Entresto 24-26 mg tablet Take 1 tablet by mouth every 12 (twelve) hours 12/26/2024 Active rosuvastatin (CRESTOR) 20 mg tablet Take 1 tablet (20 mg total) by mouth daily 12/11/2024 Active lidocaine (LIDODERM) 5 % Place 1 patch on the skin daily 05/28/2024 Active Jardiance 10 mg tablet Take 1 tablet (10 mg total) by mouth daily 01/15/2025 Active clopidogreL (PLAVIX) 75 mg tablet Take 1 tablet (75 mg total) by mouth every morning 12/26/2024 Active carvediloL (COREG) 6.25 mg tablet TAKE 1 TABLET BY MOUTH EVERY 12 HOURS WITH FOOD 01/15/2025 Active carvediloL (COREG) 3.125 mg tablet Take 1 tablet (3.125 mg total) by mouth every 12 (twelve) hours 11/01/2024 Active atorvastatin (LIPITOR) 40 mg tablet Take 1 tablet (40 mg total) by mouth daily 11/01/2024 Active aspirin 81 mg enteric coated tablet Take 1 tablet (81 mg total) by mouth every morning 12/26/2024 Active amiodarone (PACERONE) 200 mg tablet Take 1 tablet (200 mg total) by mouth daily 01/08/2025 Active acetaminophen 500 mg capsule Take 2 capsules (1,000 mg total) by mouth every 8 (eight) hours as needed 05/28/2024 Active ibuprofen (ADVIL,MOTRIN) 600 mg tablet Take 1 tablet (600 mg total) by mouth every 6 (six) hours as needed 05/28/2024 Active Active Problems No known active problems Social History Tobacco Use Types Packs/Day Years Used Date Smoking Tobacco: Never Smokeless Tobacco: Never Tobacco Cessation:Counseling Given: Not Answered Sex and Gender Information Value Date Recorded Sex Assigned at Not on file 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 Gender Identity Not on file Sexual Orientation Not on file Last Filed Vital Signs Vital Sign Reading Time Taken Comments Blood Pressure 170/120 01/24/2025 1:07 PM CDT Pulse 90 01/24/2025 1:07 PM CDT Temperature - - Respiratory Rate - - Oxygen Saturation - - Inhaled Oxygen Concentration - - Weight 84.4 kg (186 lb) 01/24/2025 1:07 PM CDT Height 180.3 cm (5' 11) 01/24/2025 1:07 PM CDT Body Mass Index 25.94 01/24/2025 1:07 PM CDT Plan of Treatment Not on file Procedures Procedure Name Priority Date/Time Associated Diagnosis Comments US CAROTIDS DUPLEX BILATERAL Schedule Routine, Read Routine (OP Routine) 02/18/2025 4:27 PM CDT Cerebrovascular accident (CVA), unspecified mechanism (HCC) from Last 3 Months Results * US Carotids Bilateral (02/18/2025 4:27 PM CDT) Anatomical Region Laterality Modality Vascular Bilateral Ultrasound 02/18/2025 2:23 PM CDT Narrative 02/19/2025 3:51 PM CDT Carotid Duplex Ultrasound Report Patient Name: RIMMA ELLIOTT L : 1980 (44y 4m) Study Date: 02/18/2025 2:23:47 PM Gender: M Weld Inspector: NEELAM Bradshaw Ref Provider: SERGIO LEAL Quality: Adequate Order Provider: SERGIO LEAL PROCEDURES: Carotid Report: Carotid duplex examination of the extracranial arteries was performed using 2D, color and spectral Doppler. Blood Pressure: Right: 153/107 mmHg. Left: 155/109 mmHg. INDICATIONS: I63.9 Cerebral infarction, unspecified. HISTORY: Recent stroke October of 2024, Right side weakness/numbness, slurring of speech, HTN, HLD, borderline DM, quit smoking January of 2025. COMPARISONS: No prior exams. MEASUREMENTS: Right Value Left Value RT Prox CCA PSV 98 cm/sec LT Prox CCA PSV 110 cm/sec RT Prox CCA EDV 30 cm/sec LT Prox CCA EDV 27 cm/sec RT Distal CCA PSV 99 cm/sec LT Distal CCA PSV 82 cm/sec RT Distal CCA EDV 35 cm/sec LT Distal CCA EDV 28 cm/sec RT Prox ICA PSV 43 cm/sec LT Prox ICA PSV 75 cm/sec RT Prox ICA EDV 13 cm/sec LT Prox ICA EDV 22 cm/sec RT Mid ICA PSV 65 cm/sec LT Mid ICA PSV 57 cm/sec RT Mid ICA EDV 29 cm/sec LT Mid ICA EDV 23 cm/sec RT Distal ICA PSV 69 cm/sec LT Distal ICA PSV 68 cm/sec RT Distal ICA EDV 35 cm/sec LT Distal ICA EDV 33 cm/sec RT ECA Mid PSV 86 cm/sec LT ECA Mid PSV 60 cm/sec RT ECA EDV 16 cm/sec LT ECA EDV 15 cm/sec Rt Vert PSV 37 cm/sec Lt Vert PSV 27 cm/sec FINDINGS: Rt Common Carotid Artery: Duplex imaging of the right common carotid artery is within normal limits without evidence of atherosclerotic disease. Rt Internal Carotid Artery: The plaque in the right internal carotid artery appears to be heterogeneous and smooth. Atherosclerotic changes of the right internal carotid artery without hemodynamically significant Doppler findings. <50% stenosis. Rt External Carotid Artery: Patent right external carotid artery with evidence of atherosclerotic disease present. Rt Vertebral Artery: The right vertebral artery is patent with antegrade flow. Lt Common Carotid Artery: Duplex imaging of the left common carotid artery is within normal limits without evidence of atherosclerotic disease. Lt Internal Carotid Artery: The plaque in the left internal carotid artery appears to be heterogeneous and smooth. Atherosclerotic changes of the left internal carotid artery without hemodynamically significant Doppler findings. <50% stenosis. Lt External Carotid Artery: Patent left external carotid artery with evidence of atherosclerotic disease present. Lt Vertebral Artery: The left vertebral artery is patent with antegrade flow. CONCLUSIONS: 1. The right internal carotid artery disease is consistent with a less than 50% stenosis. 2. The left internal carotid artery disease is consistent with a less than 50% stenosis. 3. Normal, antegrade flow is noted in bilateral vertebral arteries. ATTESTATION: I have reviewed and interpreted the pertinent images and measurements of this study. I attest to the conclusions in the final report that is provided above. Electronically Signed By: Angel Way MD 02/19/2025 2:33:01 PM CDT Procedure Note Angel Way MD - 02/19/2025 Carotid Duplex Ultrasound Report Patient Name: RIMMA ELLIOTT L : 1980 (44y 4m) Study Date: 02/18/2025 2:23:47 PM Gender: M Weld Inspector: NEELAM Bradshaw Ref Provider: SERGIO LEAL Quality: Adequate Order Provider: SERGIO LEAL PROCEDURES: Carotid Report: Carotid duplex examination of the extracranial arterieswas performed using 2D, color and spectral Doppler. Blood Pressure: Right: 153/107 mmHg. Left: 155/109 mmHg. INDICATIONS: I63.9 Cerebral infarction, unspecified. HISTORY: Recent stroke October of 2024, Right side weakness/numbness, slurring ofspeech, HTN, HLD, borderline DM, quit smoking January of 2025. COMPARISONS: No prior exams. MEASUREMENTS: Right Value Left Value RT Prox CCA PSV 98 cm/sec LT Prox CCA PSV 110 cm/sec RT Prox CCA EDV 30 cm/sec LT Prox CCA EDV 27 cm/sec RT Distal CCA PSV 99 cm/sec LT Distal CCA PSV 82 cm/sec RT Distal CCA EDV 35 cm/sec LT Distal CCA EDV 28 cm/sec RT Prox ICA PSV 43 cm/sec LT Prox ICA PSV 75 cm/sec RT Prox ICA EDV 13 cm/sec LT Prox ICA EDV 22 cm/sec RT Mid ICA PSV 65 cm/sec LT Mid ICA PSV 57 cm/sec RT Mid ICA EDV 29 cm/sec LT Mid ICA EDV 23 cm/sec RT Distal ICA PSV 69 cm/sec LT Distal ICA PSV 68 cm/sec RT Distal ICA EDV 35 cm/sec LT Distal ICA EDV 33 cm/sec RT ECA Mid PSV 86 cm/sec LT ECA Mid PSV 60 cm/sec RT ECA EDV 16 cm/sec LT ECA EDV 15 cm/sec Rt Vert PSV 37 cm/sec Lt Vert PSV 27 cm/sec FINDINGS: Rt Common Carotid Artery: Duplex imaging of the right common carotidartery is within normal limits without evidence of atherosclerotic disease. Rt Internal Carotid Artery: The plaque in the right internal carotidartery appears to be heterogeneous and smooth. Atherosclerotic changes of the right internalcarotid artery without hemodynamically significant Doppler findings. <50% stenosis. Rt External Carotid Artery: Patent right external carotid artery withevidence of atherosclerotic disease present. Rt Vertebral Artery: The right vertebral artery is patent with antegradeflow. Lt Common Carotid Artery: Duplex imaging of the left common carotid arteryis within normal limits without evidence of atherosclerotic disease. Lt Internal Carotid Artery: The plaque in the left internal carotid arteryappears to be heterogeneous and smooth. Atherosclerotic changes of the left internalcarotid artery without hemodynamically significant Doppler findings. <50% stenosis. Lt External Carotid Artery: Patent left external carotid artery withevidence of atherosclerotic disease present. Lt Vertebral Artery: The left vertebral artery is patent with antegradeflow. CONCLUSIONS: 1. The right internal carotid artery disease is consistent with a lessthan 50% stenosis. 2. The left internal carotid artery disease is consistent with a less than50% stenosis. 3. Normal, antegrade flow is noted in bilateral vertebral arteries. ATTESTATION: I have reviewed and interpreted the pertinent images and measurements ofthis study. I attest to the conclusions in the final report that is provided above. Electronically Signed By: Angel Way MD 02/19/2025 2:33:01 PM CDT us Sergio Leal MD IM US PROCEDURES Final Result from Last [address] Mon[address] Insurance [facility] CHOICE PLUS [facility] HMO/PPO Address: [facility] [address] [id number] Care Teams Property Accountant Relationship Specialty Start Date End Date Alecia Preciado MD [address] [address] PCP - General Family Medicine 11/21/24
--- OUTSIDE RECORDS SUMMARY | 2025-02-27 08:40 | XMS_ITS | Clinical Summary ---
Author Organization [facility] [address] Address [address] [place] [address] Care Team Providers Care Guidance Counselor Name Role Phone Alecia Preciado MD Primary Care Provider +1- [phone] Allergies No known active allergies Medications Entresto [...] Active Active Problems No known active problems Encounters Date Type Department Care Team Description 02/20/2025 3:00 PM CDT Therapy [facility] OP Occup Therapy [address] [place] [phone] Omar Bellamy OT Cerebrovascular accident (CVA), unspecified mechanism (HCC) (Primary Dx); Right hand weakness 02/20/2025 Results Follow-Up [facility] Neurology [address] [place] [phone] Rachael Longoria MA Carotids Bilateral 02/18/2025 2:00 PM CDT - 02/18/2025 11:59 PM CDT Hospital Encounter [facility] Cardiac Testing [address] [place] [address] Cerebrovascular accident (CVA), unspecified mechanism (HCC) Discharge Disposition: Discharge to home or self care 02/14/2025 2:00 PM CDT Therapy [facility] OP Occup Therapy [address] [place] [address] Omar Bellamy OT Cerebrovascular accident (CVA), unspecified mechanism (HCC) (Primary Dx); Right hand weakness 02/12/2025 2:00 PM CDT Therapy [facility] OP Occup Therapy [address] [place] [phone] Omar Bellamy OT Cerebrovascular accident (CVA), unspecified mechanism (HCC) (Primary Dx); Right hand weakness 02/12/2025 Telephone [facility] Neurology [address] [place] [phone] Sergio Leal Si, MD FMLA/DISABILTY 02/07/2025 4:00 PM CDT Therapy [facility] OP Occup Therapy [address] [place] [phone] Ebony Kamara, OT Cerebrovascular accident (CVA), unspecified mechanism (HCC) (Primary Dx); Right hand weakness 02/01/2025 Plan of Care Documentation [facility] OP Occup Therapy [address] [place] [address] [address] [place] [address] 01/30/2025 3:00 PM CDT Therapy [facility] OP Occup Therapy [address] [place] [address] [address] [place] [address] Omar Bellamy OT Cerebrovascular accident (CVA), unspecified mechanism (HCC) (Primary Dx); Right hand weakness 01/24/2025 1:00 PM CDT Office Visit [facility] Neurology [address] [place] [address] [address] [place] [phone] Sergio Leal Si, MD Cerebrovascular accident (CVA), unspecified mechanism (HCC) (Primary Dx); Right hand weakness from Last 3 Months Social History Tobacco Use Types Packs/Day Years Used Date Smoking Tobacco: Never Smokeless Tobacco: Never Tobacco Cessation:Counseling Given: Not Answered Sex and Gender Information Value Date Recorded Sex Assigned at Not on file 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 Gender Identity Not on file Sexual Orientation Not on file Obstetrics History Last Filed Vital Signs Vital Sign Reading [...] 01/24/2025 1:07 PM CDT Plan of Treatment Health Maintenance Due Date Last Done Comments Colon Cancer Screening-Colonoscopy 1980 Depression Screening 1980 Hepatitis C Screening 1980 Prostate Cancer Screening-PSA 1980 DTaP/Tdap/Td Vaccine (5 - Tdap) 10/14/1990 10/11/1980, 04/30/1980, 01/20/1980, Additional history exists Varicella Vaccines (1 of 2 - 13+ 2-dose series) 10/14/1992 Hepatitis B Screening 10/14/1997 Regular Well Visit/Exam 18-64 10/14/1997 Covid-19 Vaccine ( - 2023- season) 2024 01/30/2021, 01/13/2021 Influenza Vaccine (#1) 2025 HPV Vaccines Aged Out No longer eligi ble based on patient's age to complete this topic Pneumococcal vaccine <65 Aged Out No longer eligible based on patient's age to complete this topic Procedures Procedure Name Priority Date/Time Associated Diagnosis [...] Study Date: 02/18/2025 2:23:47 PM Gender: M Environmental Health Specialist: NEELAM Bradshaw Ref Provider: SERGIO LEAL Quality: [...] Study Date: 02/18/2025 2:23:47 PM Gender: M Environmental Health Specialist: NEELAM Bradshaw Ref Provider: SERGIO LEAL Quality: [...] MD 02/19/2025 2:33:01 PM CDT us Sergio Si Comfort [facility] US PROCEDURES Final Result from Last 3 Months Insurance [facility] CHOICE [facility]US [facility] HMO/PPO Address: [facility] [address] [place] [address] Care Teams Guidance Counselor Relationship Specialty Start Date End Date Alecia Preciado MD [address] [address] PCP - General Family Medicine 11/21/24
--- OUTSIDE RECORDS SUMMARY | 2025-02-27 08:40 | XMS_ITS | Encounter Summary ---
Author Organization [facility] Address [address] [place] [address] Care Team Providers Care Barge Worker Name Role Phone Alecia rPeciado MD Primary Care Provider +1- [phone] Reason for Visit * Reason Onset Date Comments Test Results 02/20/2025 RESULTS Encounter Details Date Type Department Care Team ([facility] st Contact Info) Description 02/20/2025 Results Follow-Up [facility] Neurology [address] [place] [phone] Rachael Longoria MA US Carotids Bilateral Social History Tobacco Use Types Packs/Day Years Used Date Smoking Tobacco: Never Smokeless Tobacco: Never Sex and Gender Information Value Date Recorded Sex Assigned at Not on file 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 Carotid ultrasound shows mild atherosclerosis but no significant vessel stenosis. Advise to continue with aspirin 81 mg daily. Patient voices she understands the results and the instruction to take a daily Aspirin of 81 mg daily. * Telephone Encounter - Rachael Longoria MA - 02/20/2025 12:43 PM CDT ----- Message from Sergio Moyer MD sent at 02/20/2025 11:32 AM CDT ----- Carotid ultrasound shows mild atherosclerosis but no significant vessel stenosis. Advise to continue with aspirin 81 mg daily. ----- Message ----- From: Interface, Cardiology Results In Sent: 02/19/2025 3:51 PM CDT To: Sergio Moyer MD documented in this encounter Plan of Treatment Not on file documented as of this encounter Visit Diagnoses Not on filedocumented in this encounter Care Teams Barge Worker Relationship Specialty Start Date End Date Alecia Preciado MD [address] [address] PCP - General Family Medicine 11/21/24 documented as of this encounter
--- NOTE | 2025-03-26 22:26 | P.SLEEP_ITS ---
Sleep Study Date of Study: 02/27/25 <Elda Koroma MD - Last Filed: 04/11/25 21:49> Ordering Provider: Marco Ludwig DO <Elda Koroma MD - Last Filed: 04/11/25 21:49> Interpreting Physician: Elda Koroma MD <Elda Koroma MD - Last Filed: 04/11/25 21:49> Sleep Study Type: Split Polysomnogram <Elda Koroma MD - Last Filed: 04/11/25 21:49> Height: 1.8 m <Elda Koroma MD - Last Filed: 04/11/25 21:49> Weight: 97.522 kg <Elda Koroma MD - Last Filed: 04/11/25 21:49> Body Mass Index: 29.9 <Elda Koroma MD - Last Filed: 04/11/25 21:49> 29.9 <Steph Coronado DO - Last Filed: 04/11/25 10:00> Neck Circumference (inches): 15 <Elda Koroma MD - Last Filed: 04/11/25 21:49> [place]: 10 <Elda Koroma MD - Last Filed: 04/11/25 21:49> Reason for Sleep Study Hypersomnolence <Elda Koroma MD - Last Filed: 04/11/25 21:49> Sleep History Rimma Elliott is a 44-year-old man with excessive daytime sleepiness. He has heart failure, hypertension, diabetes, history of a stroke and arrhythmias. He rarely awakens from sleep feeling short of breath. He rarely wakes at night with heartburn, belching or coughing.??He always snores, and this is constantly loud enough that others complain. He constantly has trouble sleeping when he has a cold. He rarely wakes up gasping for breath during the night. He frequently has breathing problems at night. He frequently sweats excessively at night. He rarely notices his heart pounding or beating irregularly during the night. He occasionally falls asleep during the day. He occasionally falls asleep involuntarily, never falls asleep while driving. He never experiences loss of muscle tone with strong emotion. He rarely has daytime difficulty at work due to excessive sleepiness. He never feels paralyzed on waking or falling asleep. He rarely experiences vivid dreams upon waking or falling asleep. He never feels afraid of going to sleep. He constantly has nightmares. He occasionally recalls his dreams. He constantly has thoughts racing through his mind. He rarely feels sad or depressed. He constantly feels anxiety. He occasionally notices parts of his body jerk. He occasionally kicks during the night. He occasionally feels crawling or aching feelings in his legs. He occasionally feels leg pain at night. He occasionally has morning jaw pain, occasionally grinds his teeth at night. He occasionally feels bothered by pain during the day, rarely awakened by pain during the night. He occasionally wakes up feeling stiff in the morning, and he occasionally wakes feeling sore or achy. He occasionally awakens with pain in his neck, spine, or joints. Normal bedtime is 10:00 a.m., falling asleep an hour, give or take, depending on whether not he takes a sleeping pill. 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 He wakes a few times, and may be able to return to sleep within an hour when he wake in the daytime. He wake time is variable. He typically gets 5 hours of sleep during the daytime. His sleep habits on the weekend are different as he sleeps longer. He takes naps in the day, however he does not feel refreshed after a short nap lasting 10-15 minutes. Habits:??Tobacco: former smoker Caffeine: 1 serving daily Alcohol: none Recreational substances: none <Elda Koroma MD - Last Filed: 04/11/25 21:49> FOR[facility]LY [facility] Past Medical History Medical History: Medical History (Updated 03/26/25 @ 22:38 by Elda Koroma MD) Smoking Expressive aphasia Systolic dysfunction Hypertension Left-sided cerebrovascular accident (CVA) <Elda Koroma MD - Last Filed: 04/11/25 21:49> Family History Family History: Family History Sibling TIA (transient ischemic attack) Mother Diabetes mellitus Hypertension <Elda Koroma MD - Last Filed: 04/11/25 21:49> Social History Social History: Social History Years smoked: 20 Smoking status: Current every day smoker Tobacco type: cigarettes Alcohol intake: current Drinks per week: 5 Substance use: never Do You Feel Safe in your Home?: Yes Lack of Transportation: No Lack of Food: Never True Current Housing: I Have Housing Concerned About Future Housing: No Difficulty Paying Gas/Electric Bills: No Difficulty Paying for Meds: No Currently Unemployed: No Education: Associate Degree Difficulty w/ Childcare or Family Care: No Occupation/Education: occupation Spiritual care concerns: No <Elda Koroma MD - Last Filed: 04/11/25 21:49> Medications Home Medications: Home Medications ?Medication ?Instructions ?Recorded ?Confirmed ?Type aspirin 81 mg tablet,delayed 81 mg PO QAM #30 tabs 01/22/25 Rx release rosuvastatin 20 mg tablet 20 mg PO 11/21/24 01/22/25 H istory clopidogrel 75 mg tablet 75 mg PO QAM #30 tabs Rx sacubitril 24 mg-valsartan 26 mg 1 tablet PO Q12HR #60 tabs 01/29/25 Rx tablet (Entresto) amiodarone 200 mg tablet See Rx Instructions .Route 0 02/04/25 Rx .COMPLEX #90 tabs carvedilol 6.25 mg tablet See Rx Instructions .Route 0 02/04/25 Rx .COMPLEX #180 tabs <Elda Koroma MD - Last Filed: 04/11/25 21:49> Sleep Procedure A split night polysomnogram using the [employer] multi-channel system recorded the standard physiologic parameters including EEG, EOG, submentalis EMG, anterior tibialis EMG, EKG, body position, nasal and oral airflow using nasal pressure sensor and thermistor. Respiratory parameters of chest and abdominal movements were recorded with Respiratory Inductance Plethysmography belts. Oxygen saturation was recorded by pulse oximetry. Video monitoring was also performed. Sleep stages, periodic limb movements, and EEG arousals were scored in 30 second epochs according to the criteria of the AASM Scoring Manual. The Apnea-Hypopnea Index was calculated using CMS guidelines for definition of hypopnea while scoring respiratory events. No sleep aid was taken at the start of the test. After the baseline portion the patient met criteria for a titration with an AHI of 6.0 and desaturation to 88%. he has hypertension, and ,et criteria to proceed with PAP titration. He used a large [employer] Solo nasal mask, initial pressure was CPAP 5 cm, titrated to 6 cm, 7 cm, then switched to a medium ResMed AirTouch F20 full face mask, increased to 8 cm, 9 cm, and 10 cm. At CPAP 10 cm, the patient spent 80 minutes in bed, 2.5 minutes awake, 19.5 minutes in NREM, 59 minutes in REM. The sleep efficicnecy was 96.3%, AHi was 4.6, mainly central apneas which will decrease with regular use of CPAP. The lowest saturation was 92%. He has supine REM at this pressure. <Elda Koroma MD - Last Filed: 04/11/25 21:49> Sleep Architecture During the diagnostic portion of the study, the total recording time was 195.3 minutes. The total sleep time was 149.5 minutes. Sleep latency was 28.8 minutes. REM latency was 139.0 minutes. Sleep Efficiency was 76.6%. The patient had 8 awakenings for an awakening index of 3.2. Wake after sleep onset time was 17.0 minutes. The patient spent 7.0 minutes, 4.7% of total sleep time in Stage N1. The patient spent 124.5 minutes, 83.3% in Stage N2. The patient spent no time in Stage N3. The patient spent 18.0 minutes, 12.0% in Stage REM sleep. At 01:10:31 AM the patient was placed on PAP treatment and was titrated at pressures ranging from 5 cm to 10 cm. During the treatment portion of the study, the total recording time was 323.5 minutes. The total sleep time was 308.5 minutes. Sleep latency was 1.5 minutes. REM latency was 55.0 minutes. Sleep Efficiency was 95.4%. Wake after Sleep Onset time was 13.5 minutes. The patient spent 18.0 minutes, 5.8% of total sleep time in Stage N1. The patient spent 153.5 minutes, 49.8% in Stage N2. The patient spent no time in Stage N3. The patient spent 137.0 minutes, 44.4% in Stage REM. <Elda Koroma MD - Last Filed: 04/11/25 21:49> Respiratory Analysis During the diagnostic portion of the study, the patient had 14 hypopneas, no obstructive apneas, 1 mixed apnea, and no central apneas for an overall Apnea Hypopnea Index of 6.0 events per hour. The REM Apnea Hypopnea Index was 50.0. The NREM Apnea Hypopnea Index was 2.7. The patient had a Central Apnea Hypopnea Index of 0. There were no Respiratory Effort Related Arousals. The Respiratory Disturbance Index is 9.2 events per hour. There was no evidence of Dudley-Woodson Respirations. During the treatment portion of the study, the patient had 10 hypopneas, 1 obstructive apnea, 2 mixed apnea, and 7 central apnea for an overall Apnea Hypopnea Index of 3.9 events per hour. The REM Apnea Hypopnea Index was 6.6. The NREM Apnea Hypopnea Index was 1.7. The patient had a Central Apnea Hypopnea Index of 1.4. There were no Respiratory Effort Related Arousals. The Respiratory Disturbance Index is 6.0 events per hour. There was no evidence of Dudley-Woodson Respirations. <Elda Koroma MD - Last Filed: 04/11/25 21:49> Arousals During the diagnostic portion of the study, there were a total of 24 arousals for an arousal index of 9.6. There were 5 respiratory arousals for an index of 2.0. There were no periodic limb movement arousals. There were 6 isolated limb movement arousals for an index of 2.4. There were 9 spontaneous arousals for an index of 3.6. During the treatment portion of the study, there were a total of 56 arousals for an index of 10.9. There were 6 respiratory arousals for an index of 1.2. There were no periodic limb movement arousals. There were 9 isolated limb movement arousals for an index of 1.8. There were 32 spontaneous arousals for an index of 6.2. <Elda Koroma MD - Last Filed: 04/11/25 21:49> Periodic Limb Movements During the diagnostic portion of the study, the patient had 8 isolated limb movements with an index of 3.2. The patient had no periodic limb movements. The patient had a total of 8 limb movements with a total limb movement index of 3.2. During the treatment portion of the study, the patient had 29 isolated limb movements with an index of 5.6. The patient had no periodic limb movements. The patient had a total of 29 limb movements with a total limb movement index of 5.6. <Elda Koroma MD - Last Filed: 04/11/25 21:49> Oximetry Data During the diagnostic portion of the study, the patient had an average oxygen saturation of 94% in wake with a minimum oxygen saturation of 86% and a maximum oxygen saturation of 98%. The patient had an average oxygen saturation of 93.4% in sleep with a minimum oxygen saturation of 88% and a maximum oxygen saturation of 97%. The patient had 23 oxygen desaturations resulting in an Oxygen Desaturation Index of 9.2. The patient spent 0.3 minutes, 0.1% of total sleep time with an oxygen saturation less than 88%. During the treatment portion of the study, the patient had an average oxygen saturation of 94.7% in wake with a minimum oxygen saturation of 91% and a maximum oxygen saturation of 97%. The patient had an average oxygen saturation of 94.7% in sleep with a minimum oxygen saturation of 90% and a maximum oxygen saturation of 98%. The patient had 26 oxygen desaturations resulting in an Oxygen Desaturation Index of 5.1. The patient spent no time with an oxygen s aturation less than 88%. <Elda Koroma MD - Last Filed: 04/11/25 21:49> Snoring Profile During the diagnostic portion, snoring was mild, eliminated at the optimal pressure. <Elda Koroma MD - Last Filed: 04/11/25 21:49> Cardiac Profile During the diagnostic portion of the study, the EKG showed normal sinus rhythm. The average pulse rate was 70.1 bpm.? The minimum pulse rate was 60 bpm. The maximum pulse rate was 82 bpm. No arrhythmias noted. During the treatment portion of the study, the EKG showed normal sinus rhythm. The average pulse rate was 66.3 bpm.? The minimum pulse rate was 61 bpm. The maximum pulse rate was 80 bpm. No arrhythmias noted. <Elda Koroma MD - Last Filed: 04/11/25 21:49> EEG Profile Unremarkable, no evidence of seizures. <Elda Koroma MD - Last Filed: 04/11/25 21:49> Assessment and Plan Assessment and Plan (1) Obstructive sleep apnea: Code(s): G47.33 - Obstructive sleep apnea (adult) (pediatric) <Elda Koroma MD - Last Filed: 04/11/25 21:49> Status: Acute <Elda Koroma MD - Last Filed: 04/11/25 21:49> Assessment and Plan: This split night sleep study on February 27, 2025 shows mild obstructive sleep apnea, apnea hypopnea index is 6.0 with desaturation to 88%, successfully treated with CPAP 10 cm using a medium ResMed AirTouch F20 fullface mask and heated humidity. At CPAP 10 cm, the patient spent 80 minutes in bed, 2.5 minutes awake, 19.5 minutes in NREM, 59 minutes in REM. The sleep efficiency was 96.3%, AHI was 4.6, mainly central apneas which will decrease with regular use of CPAP. The lowest saturation was 92%. The patient should be prescribed this ResMed equipment as well as tubing, filters and reservoir. This should be used with all episodes of sleep. Compliance should be reviewed within 31-90 days of starting therapy for usage greater than 4 hours per night greater than 70% of the nights. The patient should be asked about symptoms such as excessive daytime sleepiness, quality of sleep, decreased nocturia, increased mental functioning such as memory, mood, and concentration. <Elda Koroma MD - Last Filed: 04/11/25 21:49> Data The data obtained during this sleep study is adequate for interpretation. <Elda Koroma MD - Last Filed: 04/11/25 21:49> Certification This sleep study has been reviewed by a board certified sleep medicine physician. <Elda Koroma MD - Last Filed: 04/11/25 21:49>
[2025-04-11 21:49] VITALS: BMI 29.9
== END 2025-02-28 07:30 | disposition home or self-care (01) ==
PROVIDERS: Visit Provider Internal Medicine Cardiovascular Disease
DX: G47.10 Hypersomnia, unspecified (principal); G47.33 Obstructive sleep apnea (adult) (pediatric)
CPT/HCPCS: 95811

== ENCOUNTER 2025-03-05 08:03 | Outpatient (CLI) | payer OTHER, SELFPAY ==
--- NOTE | ~2025-03-05 | NM_ITS ---
EXAMINATION: NM azar stress w perfusion DATE: 03/05/2025 10:36 INDICATION: Heart disease TECHNIQUE: Rest images were obtained following intravenous administration of 9.0 mCi Tc99m tetrofosmi n (Myoview). The patient was infused intravenously with Lexiscan (Regadenoson). Then, 30.2 mCi Tc99m tetrofosmin (Myoview) was administered intravenously, and stress images were obtained. Data was recon structed into short axis and horizontal and vertical long axis SPECT images. Gated SPECT images were also obtained. COMPARISON: None. FINDINGS: There is no definite reversible or fixed perfusion abnormality to suggest ischemia or infar ction. There is normal left ventricular chamber size. There is mild global hypokinesis with mildly d ecreased left ventricular ejection fraction measuring 39%. IMPRESSION: 1. Normal myocardial perfusion at rest and during stress. 2. Mild global hypokinesis with mildly decreased left ventricular ejection fraction measuring 39%. Reviewed, dictated and finalized at location A. IMPRESSION: 1. Normal myocardial perfusion at rest and during stress. 2. Mild global hypokinesis with mildly decreased left ventricular ejection frac tion measuring 39%.
--- OUTSIDE RECORDS SUMMARY | 2025-03-05 08:11 | XMS_ITS | Clinical Summary ---
Author Organization [facility] [address] Address [address] [place] [address] Care Team Providers Care Vp Corporate Development Name Role Phone Alecia Preciado MD Primary Care Provider +1- [phone] Allergies No known active allergies Medications Entresto [...] Encounters Date Type Department Care Team Description 03/01/2025 Documentation [facility] OP Occup Therapy [address] [place] [phone] Omar Bellamy OT No Show 02/27/2025 2:00 PM CDT Therapy [facility] OP Occup Therapy [address] [place] [phone] Omar Bellamy OT Cerebrovascular accident (CVA), unspecified mechanism (HCC) (Primary Dx); Right hand weakness 02/20/2025 3:00 PM CDT Therapy [facility] OP Occup Therapy [address] [place] [phone] Omar Bellamy OT Cerebrovascular accident (CVA), unspecified mechanism (HCC) (Primary Dx); Right hand weakness 02/20/2025 Results Follow-Up [facility] Neurology [address] [place] [address] [address] [place] [phone] Rachael Longoria MA US Carotids Bilateral 02/18/2025 2:00 PM CDT - 02/18/2025 11:59 PM CDT Hospital Encounter [facility] Cardiac Testing [address] [place] [address] Cerebrovascular accident (CVA), unspecified mechanism (HCC) Discharge Disposition: Discharge to home or self care 02/14/2025 2:00 PM CDT Therapy [facility] OP Occup Therapy [address] [place] [address] Omar Bellamy OT Cerebrovascular accident (CVA), unspecified mechanism (HCC) (Primary Dx); Right hand weakness 02/12/2025 2:00 PM CDT Therapy [facility] OP Occup Therapy [address] [place] [phone] Omar Bellamy OT Cerebrovascular accident (CVA), unspecified mechanism (HCC) (Primary Dx); Right hand weakness 02/12/2025 Telephone [facility] Medical [facility] Neurology [address] [place] [address] [address] [place] [address] Sergio Leal Si, MD FMLA/DISABILTY 02/07/2025 4:00 PM CDT Therapy [facility] OP Occup Therapy [address] [place] [address] Ebony Kamara OT Cerebrovascular accident (CVA), unspecified mechanism (HCC) (Primary Dx); Right hand weakness 02/01/2025 Plan of Care Documentation [facility] OP Occup Therapy [address] [place] [address] 01/30/2025 3:00 PM CDT Therapy [facility] OP Occup Therapy [address] [place] [phone] Omar Bellamy OT Cerebrovascular accident (CVA), unspecified mechanism (HCC) (Primary Dx); Right hand weakness 01/24/2025 1:00 PM CDT Office Visit [facility] Neurology [address] [place] [address] [address] [place] [address] Sergio Leal Si, MD Cerebrovascular accident (CVA), unspecified mechanism (HCC) (Primary Dx); Right hand weakness from Last 3 Months Social History Tobacco Use Types Packs/Day Years Used Date Smoking Tobacco: Never Smokeless Tobacco: Never Tobacco Cessation:Counseling Given: Not Answered Sex and Gender Information Value Date Recorded Sex Assigned at Not on file 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 Gender Identity Not on file Sexual Orientation [...] Screening 10/14/1997 Regular Well Visit/Exam 18-64 10/14/1997 HPV Vaccines (1 - 3-dose SCDM series) 10/14/2006 Covid-19 Vaccine ( - season) 2024 01/30/2021, 01/13/2021 Influenza Vaccine (#1) 2025 Pneumococcal vaccine <65 Aged Out No longer [...] Study Date: 02/18/2025 2:23:47 PM Gender: M Employment Interviewer: NEELAM Bradshaw Ref Provider: SERGIO LEAL Quality: [...] Study Date: 02/18/2025 2:23:47 PM Gender: M Employment Interviewer: NEELAM Bradshaw Ref Provider: SERGIO LEAL Quality: [...] MD 02/19/2025 2:33:01 PM CDT us Sergio Denys Leal MD IM US PROCEDURES Final Result from Last 3 Months Insurance [facility]US [facility] H[facility]/PPO Address: [facility] [address] [place] [address] Care Teams Vp Corporate Development Relationship Specialty Start Date End Date Alecia Preciado MD [address] [id number] PCP - General Family Medicine 11/21/24
--- OUTSIDE RECORDS SUMMARY | 2025-03-05 08:11 | XMS_ITS | Encounter Summary ---
Author Organization [facility] Healthcare Address [address] [place] [address] Care Team Providers Care Electronics Department Manager Name Role Phone Alecia Preciado MD Primary Care Provider [phone]- [phone] Reason for Visit * Reason Onset Date Comments Test Results 02/20/2025 RESULTS Encounter Details Date Type Department Care Team ([facility] st Contact Info) Description 02/20/2025 Results Follow-Up [facility] Neurology [address] [place] [phone] Rachael Longoria MA US Carotids Bilateral Social History Tobacco Use Types Packs/Day Years Used Date Smoking Tobacco: Never Smokeless Tobacco: Never Sex and Gender Information Value Date Recorded Sex Assigned at Not on file 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
--- OUTSIDE RECORDS SUMMARY | 2025-03-05 08:12 | XMS_ITS | Referral Summary ---
Author Organization [facility] [place] [address] Address [address] [place] [address] Care Team Providers Care Gum Dipper Name Role Phone Alecia Preciado MD Primary Care Provider [phone]- [phone] Encounters Date Type Department Care Team Description 03/01/2025 Documentation [facility] OP Occup Therapy [address] [place] [phone] Omar Bellamy OT No Show 02/27/2025 2:00 PM CDT Therapy [facility] OP Occup Therapy [address] [place] [phone] Omar Bellamy, OT Cerebrovascular accident (CVA), unspecified mechanism (HCC) (Primary Dx); Right hand weakness 02/20/2025 Results Follow-Up [facility] Neurology [address] [place] [address] [address] [place] [phone] Rachael Longoria MA US Carotids Bilateral 02/20/2025 3:00 PM CDT Therapy [facility] OP Occup Therapy [address] [place] [phone] Omar Bellamy, OT Cerebrovascular accident (CVA), unspecified mechanism (HCC) (Primary Dx); Right hand weakness 02/18/2025 2:00 PM CDT - 02/18/2025 11:59 PM CDT Hospital Encounter [facility] [place] [address] Cerebrovascular accident (CVA), unspecified mechanism (HCC) Discharge Disposition: Discharge to home or self care 02/14/2025 2:00 PM CDT Therapy [facility] OP Occup Therapy [address] [place] [phone] mOar Bellamy OT Cerebrovascular accident (CVA), unspecified mechanism (HCC) (Primary Dx); Right hand weakness 02/12/2025 Telephone [facility] Neurology [address] [place] [phone] ComfortSergio tucker Si, MD FMLA/DISABILTY 02/12/2025 2:00 PM CDT Therapy [facility] OP Occup Therapy [address] [place] [phone] Omar Bellamy OT Cerebrovascular accident (CVA), unspecified mechanism (HCC) (Primary Dx); Right hand weakness 02/07/2025 4:00 PM CDT Therapy [facility] OP Occup Therapy [address] [place] [phone] Ebony Kamara OT Cerebrovascular accident (CVA), unspecified mechanism (HCC) (Primary Dx); Right hand weakness 02/01/2025 Plan of Care Documentation [facility] OP Occup Therapy [address] [place] [phone] 01/30/2025 3:00 PM CDT Therapy [facility] OP Occup Therapy [address] [place] [phone] Omar Bellamy OT Cerebrovascular accident (CVA), unspecified mechanism (HCC) (Primary Dx); Right hand weakness 01/24/2025 1:00 PM CDT Office Visit [facility] Neurology [address] [place] [phone] Sergio Leal Si, MD Cerebrovascular accident (CVA), unspecified mechanism (HCC) (Primary Dx); Right hand weakness from Last 3 Months Allergies No known active allergies Medications Entreo 24-26 mg tablet Take 1 tablet by [...] on file 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
--- NOTE | 2025-03-05 08:15 | EST_ITS ---
Patient Info Name: Rimma Elliott Age: 44 years : 1980 Gender: Male Ht: 71 in Wt: 189 lbs BSA: 2.08 m2 Exam Date: 03/05/2025 8:15 AM Patient Status: O Admit Date: 03/05/2025 Exam Type: CA stress azar w NM A regadenoson stress test was performed. Staff Referring Physician: Marco Ludwig DO Attending Provider: Marco Ludwig DO Exercise Technologist: Judi Lares Exercise Physician: Marco Ludwig DO Summary 1. 1. Negative lexiscan stress test for ischemic ST changes by ECG criteria. 2. 2. Baseline hypertension. 3. 3. Nuclear scan to follow and will be reported separately. Please correlate with it. 4. 4. Patient informed of the above results. Protocol: Lexiscan Stress ECG Details Stage: REST Duration (min): 1 min : 51 sec HR (bpm): 68 SBP (mmHg): 160 DBP (mmHg): 110 Stage: REST Duration (min): 6 min : 14 sec HR (bpm): 68 SBP (mmHg): 160 DBP (mmHg): 110 Stage: STAGE 1 Duration (min): 0 min : 59 sec HR (bpm): 76 SBP (mmHg): 165 DBP (mmHg): 107 Stage: RECOVERY Duration (min): 1 min : 0 sec HR (bpm): 74 SBP (mmHg): 169 DBP (mmHg): 107 Stage: RECOVERY Duration (min): 2 min : 0 sec HR (bpm): 72 SBP (mmHg): 169 DBP (mmHg): 107 Stage: RECOVERY Duration (min): 3 min : 0 sec HR (bpm): 72 SBP (mmHg): 159 DBP (mmHg): 112 Stage: RECOVERY Duration (min): 3 min : 3 sec HR (bpm): 72 SBP (mmHg): 159 DBP (mmHg): 112 Rest HR: 68 bpm Peak HR: 78 bpm Rest Sys BP: 160 mmHg Peak Sys BP: 169 mmHg Max Pred HR: 175 bpm % Max Pred HR: 45 % Target HR: 149 bpm Max RPP: 13,182 bpm*mmHg Termination Reason: Completed protocol Cardiac Symptoms: Shortness of breath Total Time: 1 min : 0 sec Rest Feliciano BP: 110 mmHg Peak Feliciano BP: 107 mmHg Total Dose: 0.4 mg Resting ECG Sinus rhythm. Stress ECG No ST changes. Arrhythmias None. Report Signatures
--- NOTE | 2025-03-05 08:15 | ECHO_ITS ---
Patient Info Name: Rimma Elliott Age: 44 years : 1980 Gender: Male Ht: 71 in Wt: 186 lbs BSA: 2.07 m2 HR: 78 bpm BP: 161 / 119 mmHg Technical Quality: Good Exam Date: 03/05/2025 8:25 AM Patient Status: O Admit Date: 03/05/2025 Exam Type: CA echo dop color flow w con Complete two-dimensional, color flow and Doppler transthoracic echocardiogram is performed with contrast to opacify the left ventricle and to improve the deliniation of the left ventricle endocardial borders. Staff Referring Physician: Marco Ludwig DO Stock Counter: Arabella Henson Attending Provider: Marco Ludwig DO Contrast/Agitated Saline Contrast/Ag. Saline: Definity Amount: 2.00 ml Administered By: Arabella Henson Summary 1. Definity contrast administered improved wall motion interpretation. 2. Left ventricular chamber dimension is moderately enlarged. 3. Left ventricular systolic function is moderately globally reduced, estimated at 35-40. 4. There is moderately increased left ventricular wall thickness. 5. E/e' 6 is not elevated. 6. Left atrial chamber dimension is moderately enlarged. 7. There is trace mitral valve regurgitation. 8. There is mild tricuspid valve regurgitation. 9. RVSP measurement was not performed. Left Ventricle E/e' 6 is not elevated. Left ventricular chamber dimension is moderately enlarged. Left ventricular systolic function is moderately globally reduced, estimated at 35-40. There is moderately increased left ventricular wall thickness. The left ventricular diastolic function is grade I diastolic dysfunction. Definity contrast administered improved wall motion interpretation. Right Ventricle Right ventricular chamber dimension is not well visualized. Left Atria Left atrial chamber dimension is moderately enlarged. Right Atria Right atrial chamber dimension is normal. Aortic Valve The aortic valve is trileaflet. There is no aortic valve stenosis. There is no aortic valve regurgitation. Pulmonic Valve There is no pulmonic regurgitation. Mitral Valve There is no mitral valve stenosis. There is trace mitral valve regurgitation. Tricuspid Valve There is mild tricuspid valve regurgitation. RVSP measurement was not performed. Pericardium/Pleural There is no pericardial effusion. Inferior Vena Cava Normal inferior vena cava with >50% collapse upon inspiration consistent with normal right atrial pressure, 5 mmHg. Aorta The aortic root size at the sinus of Valsalva is normal. Left Ventricular Outflow Tract Name Value Normal LVOT 2D LVOT Diameter 2.0 cm LVOT Doppler LVOT Peak Velocity 123 cm/s LVOT Peak Gradient 6 mmHg LVOT Mean Gradient 3 mmHg LVOT VTI 21 cm LVOT Stroke Volume 68 ml LVOT CO 5.3 l/min LVOT CI 2.6 l/min/m2 Pulmonic Valve Name Value Normal RVOT Doppler RVOT Peak Velocity 48 cm/s RVOT Peak Gradient 1 mmHg PV Doppler PV Peak Velocity 89 cm/s PV Peak Gradient 3 mmHg Mitral Valve Name Value Normal MV Diastolic Function MV E Peak Velocity 34 cm/s MV A Peak Velocity 81 cm/s MV E/A 0.4 MV Decel Time (PW) 355 ms MV Annular TDI MV E/e' (Septal) 6.9 MV E/e' (Lateral) 6.9 MV E/e' (Average) 6.9 Tricuspid Valve Name Value Normal Estimated PAP/RSVP RA Pressure 5 mmHg <=5 Aortic Valve Name Value Normal AV Doppler AV Peak Velocity 135 cm/s AV Peak Gradient 7 mmHg AV Area (Cont Eq Chris) 2.9 cm2 AV DI (Chris) 0.91 AV Regurgitation 2D LVOT Area 3.2 cm2 Ventricles Name Value Normal LV Dimensions 2D/MM IVS Diastolic Thickness (2D) 1.1 cm 0.6-1.0 LVID Diastole (2D) 5.8 cm 4.2-5.8 LVIW Diastolic Thickness (2D) 1.2 cm 0.6-1.0 LVID Systole (2D) 4.5 cm 2.5-4.0 LVOT Diameter 2.0 cm LV Mass (2D Cubed) 275.54 g 88.00-224.00 LV Mass Index (2D Cubed) 133 g/m2 49-115 Relative Wall Thickness (2D) 0.41 <=0.42 LV Fractional Shortening/Ejection Fraction 2D/MM LV Fractional Shortening (2D) 22 % 25-43 LV EF (2D Teichholz) 43 % LV Diastolic Volume (4C MOD) 169 ml LV EF (4C MOD) 35 % LV Diastolic Volume (2C MOD) 186 ml LV EF (2C MOD) 35 % LV Diastolic Volume (BP MOD) 177 ml 62-150 LV Diastolic Volume Index (BP MOD) 86 ml/m2 34-74 LV Systolic Volume (BP MOD) 115 ml 21-61 LV Systolic Volume Index (BP MOD) 56 ml/m2 11-31 LV EF (BP MOD) 35 % 52-72 LV Diastolic Length (4C) 9.1 cm LV Systolic Length (4C) 8.6 cm LV Stroke Volume (4C MOD) 58 ml Atria Name Value Normal LA Dimensions LA Volume (4C A-L) 39 ml LA Volume (BP A-L) 46 ml RA Dimensions RA Systolic Major [place] Length (4C) 4.4 cm 2.1-2.7 RA Area (4C) 14.6 cm2 <=18.0 Report Signatures
[2025-03-05] MEDS: PERFLUTREN LIPID MICROSPHERES 1.5 ML VIAL DILUTED TO 10 ML TOTAL VOLUME IV PUSH (09:09)
--- NOTE | 2025-03-05 09:09 | IVDEFINITY ---
Prior to administration of IV Definity the patient was educated on the risks and benefits of the imaging enhancing agent including potential adverse side effects. The patient verbalized understanding. Allergies were verified. No exclusion criteria were identified and at least one of the following inclusion criteria were met: 1) physician request, 2) patient technically difficult to image (per the [place] [employer]chocardi[employer] guidelines of two or more segments not discernable within the apical view), or 3) questionable left ventricular function. ?
== END 2025-03-05 08:04 | disposition home or self-care (01) ==
LOC: ANHCARD 08:07
PROVIDERS: Visit Provider Internal Medicine Cardiovascular Disease
DX: I51.9 Heart disease, unspecified (principal)
CPT/HCPCS: 78452; 93017; A9502; C8929; J2785; Q9957